=== PATIENT | female | born 1940 | race Caucasian/White ===

== ENCOUNTER → 2017-11-19 | Outpatient (CLI) | payer MEDICARE ==
[~2017-11-19] MED LIST: ALLOPURINOL 30300 M3 PO; ASPIRIN325 PO; COD LIVER OIL1 EACH PO; COZAAR 50 MG TA50 M1 PO; DESYREL50 MG PO; FELODIPINE 5 MG5 M1 PO; LUMIGAN2.5 M1 OPHTHALMIC; MULTIVITAMINS PO; NIACIN 500 MG500 M1 PO; OMEGA-31000 MG PO; PREVALITE PACKE1 PKT; SIMVASTATIN20 MG; SIMVASTATIN40 MG PO; TRAVATAN Z5 ML IO
== END ==
LOC: M.RAD 09:00
DX: Z12.31 Encounter for screening mammogram for malignant neoplasm of breast (principal)

== ENCOUNTER → 2018-11-23 | Outpatient (CLI) | payer MEDICARE | LOC: M.RAD 07:54 | DX: Z12.31 Encounter for screening mammogram for malignant neoplasm of breast (principal) ==

== ENCOUNTER 2020-04-24 11:42 | Inpatient (IN) | payer MEDICARE ==
[~2020-04-24] VITALS: Ht 160 cm; Wt 80.0 kg
--- NOTE | ~2020-04-24 | OP ---
[address] [address] OPERATIVE REPORT Name: SUKUMAR HAGAN Isabella Room: [address] IN .R.#: [id number] Admission: 04/24/20 Attend Phys: Jay Jay De León Discharge: Date of : 36 Report #: [id number] THIS REPORT FOR: cc: Trina Coe MD, Katrina MD ~ Mario Johnson DO DICTATED BY: Michael Puentes DO DATE OF SERVICE: 04/25/2020 PREOPERATIVE DIAGNOSIS: Bowel perforation. POSTOPERATIVE DIAGNOSIS: Focal perforation of the cecum. SURGEON: Mario Johnson DO CO-SURGEON: Michael Puentes, PGY5 WELDING MACHINE OPERATOR SUBMERGED ARC: Wolf Melendez DO, PGY1 and Candido Field MS3. OPERATION PERFORMED: Exploratory laparotomy with ileocecal resection and primary anastomosis and Prevena wound VAC placement. ANESTHESIA: General and preoperative erector spinae block by Anesthesia. ESTIMATED BLOOD LOSS: 50 mL. SPECIMEN: Ileocecectomy. COMPLICATIONS: None. CONDITION: Stable. DISPOSITION: PACU to floor. INDICATIONS: The patient is an 80-year-old female who presented as a transfer from the surgery center following colonoscopy. She was admitted for desaturations that she experienced throughout her colonoscopy yesterday evening, she developed some right lower quadrant pain and underwent a CT of her abdomen and pelvis today that showed pneumoperitoneum and some stranding in the right lower quadrant adjacent to the cecum. Findings were consistent with a perforation. She was informed of the risks and benefits of exploratory laparotomy with possibility of bowel resection and possibility of an ostomy. The risks and benefits were discussed with risks [facility] [address] [facility] [place] [address] OPERATIVE REPORT Name: SUKUMAR HAGAN Isabella Room: [address] IN [facility]#: [id number] Admission: 04/24/20 Attend Phys: Jay Jay De León Discharge: Date of : 36 Report #: [id number] including but not limited to bleeding, infection, anastomotic leak, need for reoperation and injury to intraabdominal contents. She understood these risks and decided to proceed with surgery. DESCRIPTION OF PROCEDURE: After informed consent was obtained, the patient was brought to the operating room and placed in supine position. SCDs were on and running. Scheduled antibiotics had been given prior to the operation. General anesthesia was administered with an ET tube. A Clemente was placed under sterile technique. The patient was prepped and draped in the usual sterile fashion. A surgical pause was held to confirm proper patient and procedure. A 10 blade was used to make a vertical midline incision centered around the umbilicus. Dissection was carried through the subcutaneous fat until the fascia was identified. Fascia was identified and elevated with 2 Kochers. Fascia was incised using cautery. The fascia was opened for the length of the incision. The peritoneum was then elevated with 2 Kellys and opened using Metzenbaum scissors. Cautery was then used to open the peritoneum in the fascia with the full length of the incision. There was some obvious fecal matter in the right lower quadrant, some soft adhesions were broken up with blunt dissection. A pool sucker was used to suck the stool in the right lower quadrant to reveal an approximately 1 cm perforation of the cecum with some surrounding bruising and hyperemia of the cecum. Because the surrounding tissue did not appear viable, decision to proceed with an ileocecectomy rather than a partial cecectomy was made. The white line of Toldt was taken down for the full length of the ascending colon. There were some thin adhesions of the appendix to the pelvis, which were taken down using cautery. The hepatic flexure was mobilized to allow for adequate length of colon for resection and anastomosis. Once this was performed, a segment of small bowel about 20 cm from the ileocecal valve was selected. A window in the mesentery was created using blunt dissection with a Jennifer. A 75 mm GRIS blue load was fired across the small bowel transection point on the ascending colon. Approximately half the length of the ascending colon was selected. Blunt dissection was similarly made to make a window in the mesentery. An additional 75 mm blue load stapler was fired across the ascending colon. The LigaSure impact device was then used to transect the mesocolon and small bowel mesentery until the specimen was completely detached, it was handed off to the back table. The mesentery and ileocolic artery were hemostatic. The ascending colon was further mobilized at the hepatic flexure and there were some fatty adhesions between the ascending colon and the transverse colon. These were taken down using the LigaSure impact device. Once adequate length on the colon was mobilized to allow for a [id number]-jn-lqwv anastomosis, the small bowel and colon were placed adjacent to one another. Corners of both staple lines were excised using heavy curved Mayos. A 75 mm GRIS was then advanced into both limbs, the small bowel and the ascending colon. The staplers were united and fired. The antimesenteric aspect of the small bowel was adjacent to the taenia of the ascending colon. The common channel looked good in appearance. There was no bleeding from the anastomosis. On the mucosa side, [place] [address] OPERATIVE REPORT Name: SUKUMAR HAGAN Room: [address]#: [id number] Admission: 04/24/20 Attend Phys: Jay Jay De León Discharge: Date of : 38 Report #: [id number] was hemostatic as well. The stapler was removed. The edges of the staple line were grasped with four Allises and elevated. A TA 60 was fired across to close the common channel. Once this was performed, the staple line was inspected. A small amount of stool leak through the staple line, so the previous staple line was elevated and an additional load with the TA 60 was fired across. Beneath this, the staple line was inspected and had a much superior seal. There was no stool leaking from the staple line. Staple line appeared healthy and well perfused. There was a small amount of bleeding at the staple line that was controlled with very minimal point cautery. This was hemostatic. A 3-0 [address] was used to place a crotch stitch at the crotch of the anastomosis staple line. This appeared to be a very natural and tension-free anastomosis that lied very easily in the right lower quadrant. It was returned to its normal anatomical position. The abdomen was thoroughly irrigated with 2 liters of warm saline. A 19-Chadian TRAVIS drain was placed in the right lower quadrant. The NG tube was placed by Anesthesia and palpated in adequate position in the stomach. The abdomen was dry. There was no bleeding. A 2-0 PDS was used to close the abdominal fascia in a running small bites fashion from the top and an additional 2-0 PDS from the bottom. The suture line was oversewed by 2 cm and tied. The skin was then closed after irrigating the incision once more. Skin was closed with benito and a 13 cm Prevena was placed with some Mastisol to the incision. A drain sponge was placed around the TRAVIS drain site that was secured with 3-0 nylon. All counts were correct. The patient tolerated the procedure well. She was extubated and transferred to the PACU in stable condition. By: 1820 1917Alouis Johnson DO /surya
[~2020-04-24 11:42] MED LIST changes: -ALLOPURINOL 30300 M3 PO; +DESYREL150 MG PO; -DESYREL50 MG PO; -PREVALITE PACKE1 PKT; +PREVALITE PACKET4 GM PO; -SIMVASTATIN20 MG; +ZOCOR 20 MG TAB20 M1 PO; +ZYLOPRIM300 MG PO
[2020-04-24 11:51] VITALS: BP 145/62
[2020-04-24] MEDS ORDERED: PROAIR HFA8.5 GM INH (11:56)
[2020-04-24 12:23] LABS: ABSOLUTE LYMPHOCYTES 0.7 thou/uL (0.8-5.3); ABSOLUTE MONOCYTES 0.5 thou/uL (0.0-1.2); BASOPHILS 0.4 %; EOSINOPHILS 0.3 %; HEMATOCRIT 45.3 % (37.0-47.0); HEMOGLOBIN 15.3 gm/dL (12.0-15.0); LYMPHOCYTES 9.1 %; MCH 34.2 pg (26.0-34.0); MCHC 33.8 g/dL (28.0-37.0); MCV 101.3 fL (80.0-100.0); MONOCYTES 7.6 %; MPV 9.4 fl. (7.2-11.1); NUCLEATED RBCS 0 /100WBC; PLATELET COUNT* 203 thou/uL (150-400); POLYS 82.6 %; RBC 4.47 mil/uL (4.20-5.00); RDW-CV 15.1 % (10.5-14.5); WBC 7.2 thou/uL (4.0-11.0)
[2020-04-24 12:29] LABS: CREATININE 0.8 mg/dL (0.6-1.3); POTASSIUM 4.2 mmol/L (3.5-5.1)
[2020-04-24 12:33] LABS: APTT 27.9 Seconds (25.0-31.3); INR 1.1; PROTIME 11.6 Seconds (9.20-11.50)
[2020-04-24 12:34] LABS: ALBUMIN 3.2 g/dL (3.4-5.0); TOTAL BILIRUBIN 0.6 mg/dL (<0.1-1.0); TOTAL PROTEIN 7.9 g/dL (6.4-8.2)
--- NOTE | 2020-04-24 14:04 | EKG ---
[place] [address] ELECTROCARDIOGRAM REPORT Name: SUKUMAR HAGAN Room: [facility]#: [id number] Admission: 04/24/20 Attend Phys: Discharge: Date of : 36 Date of Service: 04/24/20 1208 Report #: [id number] THIS REPORT FOR: //name// [facility] ED Test Date: 2020-04-24 Test Time: 12:08:55 Pat Name: SUKUMAR HAGAN Department: Room: Gender: Combination Operator: [facility] : 1940 Requested By: Ismael Espinoza Order Number: [id number] MD: Andi Duarte Measurements Intervals [place] Rate: 97 P: 5 IA: 160 QRS: 89 QRSD: 136 T: -16 QT: 417 QTc: 530 Interpretive Statements Sinus rhythm Right bundle branch block No previous ECG available for comparison Electronically Signed On 04-24-2020 14:03:57 [employer] by Andi Duarte [email or web address] <ELECTRONICALLY SIGNED> By: Andi Duarte MD, [facility] 04/24/20 1403 1208 07 Andi Duarte MD, FACC /EPI
--- NOTE | 2020-04-24 15:00 | NUR ---
PT'S DAUGHTER IN LAW,ACE WOULD LIKE TO BE NOTIFIED WITH ANY UPDATES AT [phone]
[2020-04-24 16:53] VITALS: BP 148/98
[2020-04-24 17:14] VITALS: BP 179/74
--- NOTE | 2020-04-24 18:55 | NUR ---
RECIEVED REPORT FOR ED. PT ARRIVED TO TELE FLOOR AROUND 1700. ADMISSION ASSESSMENT, VITALS, HISTORY AND EDUCATION COMPLETED CHARTED. MEDS PER EMAR. PT ORIENTED TO ROOM BED AND CALL LIGHT. UP IN BEDSIDE CHAIR PRESENTLY. DENIES PAIN. FAMILY AT BEDSIDE UPON ADMIT. CALL LIGHT IS WITHIN REACH. HOURLY ROUNDING PERFORMED. FALL PRECAUTIONS IN PLACE.
[2020-04-24 20:00] VITALS: BP 144/66
[2020-04-24 23:45] VITALS: BP 134/70
[2020-04-25 04:55] LABS: HEMATOCRIT 41.6 % (37.0-47.0); HEMOGLOBIN 13.7 gm/dL (12.0-15.0); MCH 33.2 pg (26.0-34.0); MCHC 32.9 g/dL (28.0-37.0); MCV 100.9 fL (80.0-100.0); MPV 9.4 fl. (7.2-11.1); NUCLEATED RBCS 0 /100WBC; PLATELET COUNT* 200 thou/uL (150-400); RBC 4.12 mil/uL (4.20-5.00); RDW-CV 14.6 % (10.5-14.5)
[2020-04-25 05:14] LABS: ALBUMIN 2.6 g/dL (3.4-5.0); CALCIUM 8.8 mg/dL (8.5-10.1); CREATININE 0.7 mg/dL (0.6-1.3); POTASSIUM 3.7 mmol/L (3.5-5.1); TOTAL BILIRUBIN 0.4 mg/dL (<0.1-1.0)
--- NOTE | 2020-04-25 05:15 | NUR ---
ASSUMED CARE OF PT AFTER REPORT AT 1930. PT A&OX4. VSS. PHYSICAL ASSESSMENT COMPLETED AND CHARTED. PT ON HFNC 5L. PT ON MEDSURG STATUS. PT UPADLIB TO BSC. PT DENIES ANY PAIN. PT ABLE TO SLEEP WELL ON BED. CALL LIGHT WITHIN REACH.
[2020-04-25 05:48] LABS: ABSOLUTE LYMPHOCYTES 0.6 thou/uL (0.8-5.3); ABSOLUTE NEUTROPHILS 11.4 thou/uL (1.6-8.1); PLATELET ESTIMATE ADEQUATE
[2020-04-25 05:49] LABS: ANISOCYTOSIS 1+; POIKILOCYTOSIS 1+
[2020-04-25 08:20] VITALS: BP 133/61
[2020-04-25 12:00] VITALS: BP 118/67
--- NOTE | 2020-04-25 13:47 | 2DMMODE ---
[place] [address] 2 D/M-MODE ECHOCARDIOGRAM Name: SUKUMAR HAGAN Room: [address] IN [facility]#: [id number] Admission: 04/24/20 Attend Phys: Juaquin Cooper Discharge: Date of : 36 Date of Service: 04/25/20 1347 Report #: [id number] THIS REPORT FOR: cc: Trina Coe MD, Katrina MD Liston, Michael J. MD [facility] ~ APPROVED REPORT Study performed: 04/25/2020 10:50:40 EXAM: Comprehensive 2D, Doppler, and color-flow Echocardiogram Patient Location: In-Patient Room #: [facility] Status: routine BSA: 1.67 HR: 96 bpm BP: 133/61 mmHg Rhythm: Atrial Fibrillation Other Information Study Quality: Good Indications Pleural Effusion 2D Dimensions IVSd: 8.71 (7-11mm) LVOT Diam: 20.60 (18-24mm) LVDd: 50.63 mm PWd: 8.71 (7-11mm) Ascending Ao: 24.59 (22-36mm) LVDs: 39.22 (25-40mm) Aortic Root: 25.29 mm Volumes Left Atrial Volume (Systole) LA ESV Index: 31.40 mL/m2 Aortic Valve AoV Peak Mich.: 2.00 m/s AO Peak Gr.: 16.04 mmHg LVOT Max P.37 mmHg AO Mean Gr.: 9.72 mmHg LVOT Mean P.74 mmHg LVOT Max V: 0.59 m/s AO V2 VTI: 36.66 cm LVOT Mean V: 0.40 m/s ROSIE (VTI): 1.02 cm2 LVOT V1 VTI: 11.23 [place] [address] 2 D/M-MODE ECHOCARDIOGRAM Name: SUKUMAR HAGAN Room: [address] IN [facility]#: [id number] Admission: 04/24/20 Attend Phys: Juaquin Cooper Discharge: Date of : 36 Date of Service: 04/25/20 1347 Report #: [id number] TDI Medial E' Mich.: 0.09 m/s Lateral E' Mich.: 0.10 m/s Pulmonary Valve PV Peak Mich.: 0.92 m/s PV Peak Gr.: 3.36 mmHg Tricuspid Valve RAP Estimate: 5.00 mmHg TR Peak Gr.: 31.79 mmHg RVSP: 36.00 mmHg PA Pressure: 36.00 mmHg Left Ventricle The left ventricle is normal size. There is mild global hypokinesis. Additionally there is mild left ventricular systolic dyssynergy consistent with underlying bundle branch block. There is normal left ventricular wall thickness. Left ventricular systolic function is mildly decreased. LVEF is 45-50%. Transmitral Doppler flow pattern suggests restrictive physiology. Right Ventricle Right ventricle is mildly dilated. The right ventricular systolic function is normal. Atria The left atrium size is normal. Right atrium is mildly dilated. Aortic Valve Moderate aortic valve sclerosis. No aortic regurgitation is present. Severe aortic stenosis. Mitral Valve The mitral valve is normal in structure. Mild mitral regurgitation. No evidence of mitral valve stenosis. Tricuspid Valve The tricuspid valve is normal in structure. Mild tricuspid regurgitation. The RVSP is 45-50 mmHg. Pulmonic Valve The pulmonary valve is normal in structure. There is no pulmonic valvular regurgitation. Great Vessels The aortic root is normal in size. IVC is dilated [place] [address] 2 D/M-MODE ECHOCARDIOGRAM Name: SUKUMAR HAGAN Room: [address] IN [facility]#: [id number] Admission: 04/24/20 Attend Phys: Juaquin Cooper Discharge: Date of : 36 Date of Service: 04/25/20 1347 Report #: [id number] <50% with inspiration. Pericardium There is no pericardial effusion. <Conclusion> The left ventricle is normal size. There is normal left ventricular wall thickness. Left ventricular systolic function is mildly decreased. LVEF is 45-50%. Transmitral Doppler flow pattern suggests restrictive physiology. There is mild global hypokinesis. Additionally there is mild left ventricular systolic dyssynergy consistent with underlying bundle branch block. Right ventricle is mildly dilated. Right atrium is mildly dilated. Moderate aortic valve sclerosis. Severe aortic stenosis. Mild mitral regurgitation. Mild tricuspid regurgitation. The RVSP is 45-50 mmHg. IVC is dilated and collapses <50% with inspiration. <ELECTRONICALLY SIGNED> By: Mauricio Rushing MD, [facility] 04/25/20 1347 46 46 Mauricio Rushing MD, FACC /INF
--- NOTE | 2020-04-25 14:20 | NUR ---
CM COMPLETED INITIAL ASSESSMENT. PT LVIES HOME ALONE. PT IS [place]. PT ACE OMER AT BEDSIDE. PT HAD 5L OF O2 APPLIED; HOWEVER, PT DOES NOT USE HOME O2. PT HAS 0 DMES. PT DENIES HX WITH HH OR SNF. PT BELEIVES SHE DID REHAB W/ARU. PT IS ACTIVE, DRIVE AND INDEPENDENT W/ADLS. CM TO CONT TO FOLLOW.
--- NOTE | 2020-04-25 17:48 | NUR ---
Pt c/o pain to RLQ this am, rated 5/10. S/P colonoscopy 04/[address] polyp removal. Paged Dr. Hatfield, who ordered CT abd; which showed probable bowel perf. GI and Surgery consults ordered; pt to OR at 1350 for exp. laparotomy. Pt still off unit. Updated Leticia (dtr). Pt's VSS, was on 5L O2 per [facility] upon departure to OR.
[2020-04-25 20:00] VITALS: BP 130/68
[2020-04-25 23:42] VITALS: BP 161/72
--- NOTE | 2020-04-26 03:34 | NUR ---
ASSUMED CARE OFPT AFTER REPORT AT 1930. PT A&OX4. VSS. PHYSICAL ASSESSENT COMPLETED AND CHARTED. PT ON O2 HFNC 8L. PT TRACING SR/1ST DEG/BBB/PAC/PVC ON TELE. PT COMPLAINED OF ABDOMINAL PAIN-MED GIVEN PER MAY. MAINTAINED NGT TO LIS. MAINTAINED TRAVIS DRAIN IN NEGATIVE PRESSURE. PT WITH PARHAM TO DEPENDENT DRAIN. PT ABLE TO SLEEP WELL ON BED. CALL LIGHT WITHI REACH.
[2020-04-26 04:00] VITALS: BP 119/52
[2020-04-26 04:55] LABS: ABSOLUTE LYMPHOCYTES 0.3 thou/uL (0.8-5.3); ABSOLUTE MONOCYTES 0.4 thou/uL (0.0-1.2); ABSOLUTE NEUTROPHILS 13.1 thou/uL (1.6-8.1); BASOPHILS 0.1 %; HEMATOCRIT 35.9 % (37.0-47.0); HEMOGLOBIN 11.8 gm/dL (12.0-15.0); LYMPHOCYTES 2.3 %; MCH 33.8 pg (26.0-34.0); MCHC 32.9 g/dL (28.0-37.0); MCV 102.6 fL (80.0-100.0); MONOCYTES 3.1 %; MPV 9.2 fl. (7.2-11.1); NUCLEATED RBCS 0 /100WBC; PLATELET COUNT* 154 thou/uL (150-400); POLYS 94.5 %; WBC 13.9 thou/uL (4.0-11.0)
[2020-04-26 05:18] LABS: CREATININE 0.8 mg/dL (0.6-1.3); MAGNESIUM 1.7 mg/dL (1.8-2.4); POTASSIUM 3.7 mmol/L (3.5-5.1); TOTAL BILIRUBIN 0.4 mg/dL (<0.1-1.0); TOTAL PROTEIN 5.5 g/dL (6.4-8.2)
[2020-04-26 08:40] VITALS: BP 117/65
[2020-04-26 11:19] VITALS: BP 110/59
--- NOTE | 2020-04-26 11:26 | CON ---
[address] [address] CONSULTATION Name: SUKUMAR HAGAN Room: [address] IN M.R.#: [id number] Admission: 04/24/20 Attend Phys: Jay Jay De León Discharge: Date of : 38 Report #: [id number] THIS REPORT FOR: cc: Trina Coe MD, Katrina MD ~ Ronny Back MD DATE OF SERVICE: 04/25/2020 HISTORY OF PRESENT ILLNESS: This is an 80-year-old female with history of hypertension, diabetes, hyperlipidemia, COPD and a 09-gkfn-gfdo history of smoking, who was brought in to [facility] ER after an elective colonoscopy yesterday. During the colonoscopy, the patient had a large polyp in the cecum that was resected. The reason for inpatient admission was hypoxia. The patient complained of vague abdominal pain yesterday evening and a CT scan was performed and this showed the presence of free air. The patient currently denies any abdominal pain, nausea, vomiting, fevers or chills. She has been able to tolerate a diet till now. PAST MEDICAL HISTORY: Hypertension, COPD, hyperlipidemia. PAST SURGICAL HISTORY: Cholecystectomy, right hip replacement, peripheral vascular stents, bilateral cataracts. SOCIAL HISTORY: The patient smokes 1 pack per day, has a 56-reds-wrte history of smoking. FAMILY HISTORY: Relevant for coronary artery disease in son. REVIEW OF SYSTEMS: Comprehensive 10-point review of systems is negative except for what is mentioned in the HPI. PHYSICAL EXAMINATION: VITAL SIGNS: Temperature 36.9, pulse rate 98, respirations 18, blood pressure 133/61, pulse ox 90% on 4 liters. GENERAL: The patient is alert, awake, oriented x 3. HEENT: Pupils are equal, round and reactive. Mucous membranes are moist; there is no congestion. LUNGS: Clear to auscultation bilaterally. CARDIOVASCULAR: Rate and rhythm regular. S1, S2 present. ABDOMEN: Soft. There is no guarding or rigidity. Bowel sounds are present and normal. LABORATORY DATA: Hemoglobin 13.7, hematocrit 41.6, platelet count 200, WBC count 12. INR 1.1. Sodium 142, potassium 3.7, chloride 105, bicarbonate 25, [place] [address] CONSULTATION Name: HAGANSUKUMAR BOOTH Isabella Room: [address]#: [id number] Admission: 04/24/20 Attend Phys: Jay Jay De León Discharge: Date of : 38 Report #: [id number] BUN 11, creatinine 0.7, total bilirubin 0.4, AST 18, ALT 22, alkaline phosphatase 70. IMAGING STUDIES: CT abdomen and pelvis: This demonstrates pneumoperitoneum concerning for colonic or gastric perforation. ASSESSMENT AND PLAN: A pleasant 80-year-old female presenting for hypoxia post colonoscopy, noted to have pneumoperitoneum suggestive of colonic perforation. Surprisingly, the patient does not have any symptoms of perforation such as abdominal pain, fevers or guarding. However, due to her advanced age and comorbidities, I suspect exploring her abdomen to look for perforation would be better than waiting for her to develop any complications related to the perforation. I have spoken regarding her with Dr. Johnson. The GI service will continue to follow along. <ELECTRONICALLY SIGNED> By: Ronny Back MD 04/26/20 1126 1829 [id number] Back MD /nt
--- NOTE | 2020-04-26 16:07 | NUR ---
CM INFORMED DURING PRIME ROUNDING OF THE PLAN OF CARE FOR THE PT. PT/OT EVAL PENDING. PT CURRENTLY ON 8L O2, AND DID NOT HAVE HOME 02 PRIOR TO ADMIT. PT MAY NEED HH AT D/C PENDING MOBILITY. CM WILL REMAIN AVAILABLE TO ASSIST AND FOLLOW NEEDED.
--- NOTE | 2020-04-26 16:07 | CON ---
[address] [address] CONSULTATION Name: HAGANSUKUMAR Isabella Room: [address] IN .R.#: [id number] Admission: 04/24/20 Attend Phys: Jay Jay De León Discharge: Date of : 38 Report #: [id number] THIS REPORT FOR: cc: Trina Coe MD, Katrina MD ~ Galen Kinney MD DATE OF SERVICE: 04/25/2020 REQUESTING PHYSICIAN: Consult has been requested by Dr. Hatfield and Dr. Cooper. INDICATION FOR CONSULTATION: Hypoxia. HISTORY OF PRESENT ILLNESS: This is an 80-year-old female with past medical history as mentioned below. This does include a history of COPD. The patient, however, is not known to be on supplemental oxygen, previously, the patient came yesterday for a colonoscopy, is reported to have been hypoxemic prior to the procedure and has remained hypoxemic after as well and this is the reason that she in fact was admitted. The patient is reported to have at one point had an O2 saturation of 76% on room air, currently, the patient is requiring 4-5 liters of oxygen to maintain O2 saturation in the low 90s. She as noted above is not on supplemental oxygen before. The patient does complain of shortness of breath, but she says that she is always short of breath. She does not report any increase in shortness of breath. She does have a cough with small amounts of yellow sputum. She does not have chest pain. Does not have upper respiratory complaints. Does not have swelling of lower extremities or calf pain. The patient has had some right-sided abdominal pain and as discussed below, she does have pneumoperitoneum on her CT of the abdomen and pelvis. REVIEW OF SYSTEMS: The patient answered to the negative for 12 questions for review of systems except as mentioned above. 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 SOCIAL HISTORY: The patient is an active smoker and has been smoking for several decades half to 1 pack a day, only occasional alcohol use. No known history of illegal drug use. CURRENT MEDICATIONS: List in [employer] [place] [address] CONSULTATION Name: HAGANSUKUMAR Room: [address]#: [id number] Admission: 04/24/20 Attend Phys: Jay Jay De León Discharge: Date of : 38 Report #: [id number] HOME MEDICATIONS: List in [employer] reviewed. FAMILY HISTORY: There is a history of heart disease in the family. ALLERGIES: SHE IS REPORTED TO HAVE HAD AN ALLERGY OR ADVERSE REACTION TO CAPTOPRIL, HYDROCODONE, AND PLAVIX. PHYSICAL EXAMINATION: GENERAL: She was alert, awake and oriented, did not appear to be in any distress at this time. VITAL SIGNS: Had a pulse of 100 and blood pressure of 118/67. She, however, was saturating only 91-92% on 5 liters nasal cannula, respiratory rate is 18-19. She is afebrile with a temperature of 36.9. Body mass index is 25. HEENT: Head is normocephalic and atraumatic. Pupils are equal and reactive. There is no throat erythema. She does appear to have a narrow airway. NECK: Does not show raised JVP, asymmetry, mass or lymph nodes. CHEST: Symmetrical expansion on inspection and palpation. On auscultation, breath sounds are bilaterally equal, but decreased. I do not hear any added sounds. HEART: Regular. There is no murmur. ABDOMEN: Soft. There is tenderness at the right side of the abdomen, particularly in the right lower quadrant. EXTREMITIES: Lower extremities show no edema, no calf tenderness. SKIN: Dry and intact. NEUROLOGICAL: She did move all extremities bilaterally equally and spontaneously with no focal deficit identified. LABORATORY DATA: The patient's chest x-ray from yesterday is reviewed and compared with a chest x-ray done today. There is a developing opacity in the right middle/lower lobe, which could indicate a small infiltrate. The patient's CT of the abdomen and pelvis shows mild atelectasis at bilateral lung bases. The patient's lab work in [facility] is reviewed. CT of the abdomen and pelvis report, which does show pneumoperitoneum in [facility] reviewed. ASSESSMENT AND PLAN: 1. Wctam-tc-trhktuz hypoxemic respiratory failure. She does appear to have chronic obstructive pulmonary disease. It appears likely to me that she has chronic hypoxemic respiratory failure, which has not previously been identified and this may be the acute recognition of a chronic issue, some worsening may have occurred as a result of the colonoscopy prep as well as the procedure. At first glance from thromboembolism appears to be unlikely; however, cannot be completely ruled out. 2. Chronic obstructive pulmonary disease. We will continue with Bart; [address] [address] CONSULTATION Name: SUKUMAR HAGAN Room: [address] IN [facility]#: [id number] Admission: 04/24/20 Attend Phys: Jay Jay De León Discharge: Date of : 36 Report #: [id number] however, I cut back the dose further. We will continue with DuoNeb. 3. Pulmonary infiltrate. There is a developing opacity in the right mid zone. She already is on broad-spectrum antibiotics. We will follow. 4. Pneumoperitoneum/recent colonoscopy. Defer followup to GI and Surgery Services. I ordered n.p.o. pending their evaluation. 5. Evaluation for thromboembolic phenomenon/past medical history of deep vein thrombosis, she is status post inferior vena cava filter. We will go ahead and repeat venous Dopplers. We will go ahead and obtain a D-dimer as well. In case, the D-dimer is elevated and then I may consider a CTA chest. An echocardiogram was also ordered and pending at this time. Thanks for this consultation. <ELECTRONICALLY SIGNED> By: Galen Kinney MD 04/26/20 1607 1300 1928Aroslyn Kinney MD /nt
[2020-04-26 16:30] VITALS: BP 129/66
--- NOTE | 2020-04-26 18:50 | NUR ---
RECEIVED REPORT. ASSUMED CARE OF PT AROUND 0730. AM ASSESSMENT AND VITALS COMPLETED CHATED. MEDS PER EMAR. WOUND VAC IN PLACE AND WORKING. TRAVIS DRAIN IN PLACE, OUTPUT CHARTED. NG TUBE IN PLACE TO LIS. PT TOLERATED PO MEDS WITH SIP OF WATER. D.I.L. IN TO VISIT THIS AM, RECEIVED UPDATE. PARHAM IN PLACE TO DD, OUTPUT POOR - DR GREENFIELD NOTIFIED AND ORDER RECEIVED FOR FLUID BOLUS. PT CURENTLY RESTING IN BED. CALL LIGHT WITIN REACH. HOURLY ROUNDING PERFORMED. FALL PRECAUTIONS IN PLACE.
[2020-04-26 20:00] VITALS: BP 133/67
[2020-04-27 00:46] VITALS: BP 138/77
[2020-04-27 04:00] VITALS: BP 138/70
[2020-04-27 04:30] LABS: ABSOLUTE LYMPHOCYTES 0.7 thou/uL (0.8-5.3); ABSOLUTE MONOCYTES 0.6 thou/uL (0.0-1.2); ABSOLUTE NEUTROPHILS 9.7 thou/uL (1.6-8.1); BASOPHILS 0.1 %; HEMATOCRIT 39.5 % (37.0-47.0); HEMOGLOBIN 12.7 gm/dL (12.0-15.0); LYMPHOCYTES 6.5 %; MCH 33.3 pg (26.0-34.0); MCHC 32.1 g/dL (28.0-37.0); MCV 103.8 fL (80.0-100.0); MONOCYTES 5.4 %; MPV 9.6 fl. (7.2-11.1); NUCLEATED RBCS 0 /100WBC; PLATELET COUNT* 164 thou/uL (150-400); RBC 3.81 mil/uL (4.20-5.00); RDW-CV 14.9 % (10.5-14.5); WBC 11.1 thou/uL (4.0-11.0)
[2020-04-27 05:12] LABS: CALCIUM 8.1 mg/dL (8.5-10.1); CREATININE 0.7 mg/dL (0.6-1.3); MAGNESIUM 2.1 mg/dL (1.8-2.4); POTASSIUM 3.8 mmol/L (3.5-5.1)
--- NOTE | 2020-04-27 06:30 | NUR ---
Alert and oriented x 4. Vital signs are stable, O2 sat 95% on high flow 8L n/c. Heart rate is regular and SR,BBB,PVC's on monitor. Midline abdominal incision is approximated with Prevena woundvac and it is working well. She has had 450 mls output per epperson cath. TRAVIS is in RLQ and has serosang drainage. She denies need for pain or nausea meds. She has slept well.
[2020-04-27 07:48] VITALS: BP 131/70
[2020-04-27 11:26] VITALS: BP 127/62
--- NOTE | 2020-04-27 12:58 | NUR ---
CM INFORMED DURING PRIME ROUNDING OF THE PLAN OF CARE FOR THE PT. PHYSICIAN INFORMS OF PLAN FOR THE PT TO POSSIBLY BE HERE THRUGH THE WEEKEND. PT IS POD#2. PT/OT CONTINUES TO FOLLOW PT. PT CURRENTLY ON 8L O2. PT MAY NEED HH AND HOME O2 AT D/C. CM WILL REMAIN AVAILABLE TO ASSIST AND FOLLOW NEEDED.
[2020-04-27 13:15] LABS: CALCIUM 8.7 mg/dL (8.5-10.1); CREATININE 0.7 mg/dL (0.6-1.3); POTASSIUM 3.9 mmol/L (3.5-5.1)
[2020-04-27 16:07] VITALS: BP 156/77
[2020-04-27 20:00] VITALS: BP 153/64
[2020-04-28] VITALS (7 sets, daily range): BP systolic 128–143; BP diastolic 65–79
[2020-04-28 04:31] LABS: ABSOLUTE LYMPHOCYTES 0.6 thou/uL (0.8-5.3); ABSOLUTE MONOCYTES 0.5 thou/uL (0.0-1.2); ABSOLUTE NEUTROPHILS 7.7 thou/uL (1.6-8.1); BASOPHILS 0.1 %; HEMATOCRIT 37.1 % (37.0-47.0); HEMOGLOBIN 12.3 gm/dL (12.0-15.0); LYMPHOCYTES 6.4 %; MCH 34.1 pg (26.0-34.0); MCHC 33.3 g/dL (28.0-37.0); MCV 102.5 fL (80.0-100.0); MONOCYTES 5.8 %; MPV 9.9 fl. (7.2-11.1); NUCLEATED RBCS 0 /100WBC; PLATELET COUNT* 155 thou/uL (150-400); POLYS 87.7 %; RBC 3.62 mil/uL (4.20-5.00); RDW-CV 14.5 % (10.5-14.5); WBC 8.8 thou/uL (4.0-11.0)
[2020-04-28 04:59] LABS: CALCIUM 7.8 mg/dL (8.5-10.1); CREATININE 0.6 mg/dL (0.6-1.3); POTASSIUM 3.9 mmol/L (3.5-5.1); TOTAL BILIRUBIN 0.4 mg/dL (<0.1-1.0); TOTAL PROTEIN 5.9 g/dL (6.4-8.2)
--- NOTE | 2020-04-28 05:40 | NUR ---
NURSING ASSESSMENT COMPLETED AT START OF SHIFT. PT AAOX4 BUT EXHIBITS POOR MEMEORY. HOURLY ROUNDING COMPLETED. FORK TRUCK DRIVER IN PLACE. PT COMPLAINED OF EPISODES OF DIARRHEA AFTER DINNER, DR. RODRIGUEZ NOTIFIED AND NEW ODER RECEIVED. PT AMBULATED HALLWAY THROUGHOUT THE NIGHT, VOICED NO CONCERNS. CALL LIGHT WITHIN REACH.
--- NOTE | 2020-04-28 05:54 | NUR ---
ASSUMED PT CARE AT 1915. NURSING ASSESSMENT COMPLETED AT START OF SHIFT. PT HAS NG HOOKED UP TO LIS. EXCHANGE ENGINEER IN PLACE. SEROSANGUENIOUS DRAINAGE FROM TRAVIS DRAIN. PREVENA IN PLACE TO SURGICAL INCISION IN ABDOMEN. HOURLY ROUNDING COMPLETED. PT STILL NOT PASSING FLATUS/NO BM THIS SHIFT. PT ENCOURAGED TO MOVE AROUND AND USE IS. Q2H REPOSITIONING COMPLETED. PARHAM CATHETER REMOVED THIS SHIFT. FALL PRECAUTIONS IN PLACE, CALL LIGHT WITHIN REACH.
--- NOTE | 2020-04-28 11:50 | NUR ---
CM INFORMED DURING PRIME ROUNDING OF THE PLAN OF CARE FOR THE PT. PT REMAINS ON IV ABT'S. WOUND VAC IN PLACE. PT CURRENTLY ON 6L O2. PLAN FOR PT TO REMAIN INPT THROUGH THE WEEKEND. POSSIBLE NEED AT D/C INCLUDE HH AND HOME O2. PT EVALUATED BY P.T. AND ONLY ABLE TO AMBULATE '3 SIDE STEPS'. CM INFORMED P.T. OF THE NEED TO F/U WITH PT TO ASSIST IN DETERMINING MOBILITY AND D/C NEEDS. CM WILL REMAIN AVAILABLE TO ASSIST AND FOLLOW NEEDED.
[2020-04-28 15:43] LABS: CALCIUM 8.6 mg/dL (8.5-10.1); CREATININE 0.9 mg/dL (0.6-1.3); MAGNESIUM 2.2 mg/dL (1.8-2.4); POTASSIUM 3.9 mmol/L (3.5-5.1)
--- NOTE | 2020-04-28 19:25 | NUR ---
ASSUMED PT CARE AT 0730, PT AOX4, NO C/O PAIN OR SHORTNESS OF BREATH. PT WORKED W/ SURGERY TODAY AND NG TUBE SWITCHED FROM INT SUCTION TO CLAMPED AND PT'S DIET ADVANCED TO CLEAR LIQUIDS, TOLERATING WELL. PT WORKED W/ WOUND CARE TODAY FOR WOUND VAC. TRAVIS DRAIN DRAINING SEROSANGUINOUS FLUID. PT BEING TURNED Q2H WHEN IN BED AND GETS UP W/ 1 TO BEDSIDE COMMODE. PT GOAL IS TO CONTINUE TO TOLERATE DIET. MEDS PER MAY, HOURLY ROUNDING OBSERVED, FALL PRECAUTIONS IN PLACE, CALL LIGHT W/IN REACH.
[2020-04-29 04:00] VITALS: BP 138/72
--- NOTE | 2020-04-29 05:01 | NUR ---
PT HAS SLEPT WELL OVERNIGHT. UP WITH ASSIST TO BSC TO VOID, NO BM OR FLATUS. AOX4, ABLE TO USE CALL LITE AND MAKE NEEDS KNONW. ABD WOUND VAC ON AND OPERATING. RLQ ABD TRAVIS DRAIN WITH SEROSANG FLUID DRNG, CLOT PRESENT IN BULB FROM START OF SHIFT. NGT REMAINS CLAMPED, PT DENIES PAIN OR N/V. HS ACCUCHECK 154, NO MED ORDERS. O2 6L HIFLO NC SAT MID 90'S. CONGESTED COUGH, LUNGS COARSE. RT TX. AM LABS. PT TURNED AND REPOSITIONED Q2 HOURS AND PRN FOR SKIN CARE AND COMFORT SHE WOULD ALLOW, EDUCATION GIVEN WITH REFUSAL OF SOME TURNS. LFA AND RAC SL IV. TELE SR BBB, VSS.
[2020-04-29 06:32] LABS: HEMATOCRIT 38.2 % (37.0-47.0); HEMOGLOBIN 12.6 gm/dL (12.0-15.0); MCH 33.7 pg (26.0-34.0); MCV 101.9 fL (80.0-100.0); MPV 9.8 fl. (7.2-11.1); RBC 3.75 mil/uL (4.20-5.00); RDW-CV 14.4 % (10.5-14.5); WBC 6.9 thou/uL (4.0-11.0)
[2020-04-29 06:45] LABS: ALBUMIN 2.2 g/dL (3.4-5.0); CALCIUM 8.4 mg/dL (8.5-10.1); CREATININE 0.7 mg/dL (0.6-1.3); MAGNESIUM 1.9 mg/dL (1.8-2.4); POTASSIUM 3.8 mmol/L (3.5-5.1); TOTAL BILIRUBIN 0.4 mg/dL (<0.1-1.0); TOTAL PROTEIN 6.1 g/dL (6.4-8.2)
[2020-04-29 08:00] VITALS: BP 134/65
[2020-04-29 12:17] VITALS: BP 126/67
[2020-04-29 15:51] VITALS: BP 135/63
--- NOTE | 2020-04-29 20:19 | NUR ---
RECEIVED REPORT. ASSUMED CARE OF PT AROUND 0730. AM ASSESSMENT AND VITALS COMPLETED CHARTED. MEDS PER EMAR. NG TUBE REMOVED. MIDLINE INCISION WITH WOUND VAC IN PLACE. TRAVIS DRAIN IN PLACE. PT UP WITH SBA MULTIPLE TIMES TO COMMODE AND BESIDE CHAIR. PT HAD 3 LIQUID BMS THIS SHIFT. SON VIISTED. FALL PRECAUTIONS IN PLACE. CALL LIGHT WITHIN REACH
[2020-04-29 21:00] VITALS: BP 136/51
[2020-04-29 23:28] VITALS: BP 115/59
[2020-04-30] VITALS (7 sets, daily range): BP systolic 102–146; BP diastolic 50–76
[2020-04-30 05:08] LABS: MCH 33.4 pg (26.0-34.0); MCHC 33.2 g/dL (28.0-37.0); MCV 100.5 fL (80.0-100.0); MPV 9.7 fl. (7.2-11.1); RBC 3.58 mil/uL (4.20-5.00); RDW-CV 14.3 % (10.5-14.5); WBC 7.4 thou/uL (4.0-11.0)
[2020-04-30 05:14] LABS: ALBUMIN 2.1 g/dL (3.4-5.0); CALCIUM 8.1 mg/dL (8.5-10.1); CREATININE 0.7 mg/dL (0.6-1.3); MAGNESIUM 2.2 mg/dL (1.8-2.4); POTASSIUM 3.4 mmol/L (3.5-5.1); TOTAL BILIRUBIN 0.3 mg/dL (<0.1-1.0); TOTAL PROTEIN 5.7 g/dL (6.4-8.2)
--- NOTE | 2020-04-30 05:59 | NUR ---
PT AO X4 LYING IN BED ATT TIME OF ASSESSMENT. SHE IS STANDING AND PIVOTING TO BSC WITH STANDBY ASSIST. WOUND VAC IN PLACE AND TRAVIS WITH SEROUS DRAINAGE. PT DENIES PAIN AT THIS TIME. VSS PT ON 4L NC. LUNGS DIMINISHED THROUGHOUT. PT NSR ON SUPERVISOR CHEMICAL.
--- NOTE | 2020-04-30 17:52 | NUR ---
RECEIVED REPORT. ASSUMED CARE OF PT AROUND 0730. AM ASSESSMENT AND VITALS COMPLETED CHARTED. MEDS PER EMAR. PT HAS DENIED PAIN ALL DAY. TOLERATING FULL LIQUIDS. UP TO BSC MULTIPLE TIMES - 2 LIQUID BMS NOTED. TRAVIS DRAIN INTACT, SERO-SANGUINOUS DRAINAGE NOTED. MIDLINE INCISION WITH WOUND VAC IN PLACE. PT UP TO BEDSIDE CHAIR OFTEN TODAY. HAD A VISITOR. PT CONTINUING TO PROGRESS TOWARD GOALS. FALL PRECAUTIONS IN PLACE. CALL LIGHT WITHIN REACH. HOURLY ROUNDING PERFORMED.
--- NOTE | 2020-04-30 20:00 | NUR ---
RECEIVED REPORT AND ASSUMED CARE OF PT, ASSESSMENT COMPLETED. PT VERY PLEASANT. IV LEAKING AND RESTARTED WITHOUT DIFFICULTY. RLQ ABD TRAVIS COMPRESSED WITH SEROSANGUNIOUS DRAINAGE. MIDLINE INCISION WITH PREVENA WOUND VAC. O2 ON AT 4L/NC, NO SOA WHILE RESTING. TELEMETRY ON SHOWING SR WITH BBB AND FREQ PAC. WILL CONT TO MONITOR AND ASSIST NEEDED.
[2020-05-01] VITALS (7 sets, daily range): BP systolic 134–166; BP diastolic 64–90
[2020-05-01 04:35] LABS: HEMATOCRIT 39.7 % (37.0-47.0); HEMOGLOBIN 13.1 gm/dL (12.0-15.0); MCH 32.9 pg (26.0-34.0); MCHC 32.9 g/dL (28.0-37.0); MPV 10.1 fl. (7.2-11.1); NUCLEATED RBCS 0 /100WBC; PLATELET COUNT* 188 thou/uL (150-400); RBC 3.97 mil/uL (4.20-5.00); RDW-CV 14.4 % (10.5-14.5); WBC 9.8 thou/uL (4.0-11.0)
[2020-05-01 04:41] LABS: CREATININE 0.7 mg/dL (0.6-1.3); MAGNESIUM 1.8 mg/dL (1.8-2.4); POTASSIUM 3.7 mmol/L (3.5-5.1)
[2020-05-01 05:46] LABS: ABSOLUTE LYMPHOCYTES 1.7 thou/uL (0.8-5.3); ABSOLUTE MONOCYTES 0.5 thou/uL (0.0-1.2); ABSOLUTE NEUTROPHILS 7.6 thou/uL (1.6-8.1); ANISOCYTOSIS 1+; PLATELET ESTIMATE ADEQUATE; POIKILOCYTOSIS 1+
--- NOTE | 2020-05-01 06:30 | NUR ---
SLEPT WELL TONIGHT. ASSISTED TO BSC, TRANSFERS WELL WITH SBA. VOIDING WITHOUT DIFFICULTY, HAVING LIQ STOOLS. CONT TO BE SOA WITH ACTIVITY, O2 ON AT 4L/HFC. TELEMETRY CONT TO SR WITH BBB AND FREQ PAC. ASSESSMENT UNCHANGED. HS GOALS OF REST AND SAFETY ACHIEVED. HOURLY ROUNDING OBSERVED.
--- NOTE | 2020-05-01 10:09 | PATH ---
[address] [address] PATHOLOGY RPT PROCEDURE Name: GISELLE HAGAN Room: [address] IN ..#: [id number] Admission: 04/24/20 Date of : 36 Discharge: Report #: [id number] Path Case #: [id number] [facility] Accession Number: [id number] . 01 Material submitted: . ileum - ILEOCECUM . 01 Clinical history: . PERFORATED VISCOUS PERFORATED CECUM COPD WITH EXACEBRATION BILATERAL PNEUMONIA . 02 Diagnosis: Ileocecum: - Segment of benign ileum, appendix and colon with evidence of recent cecal transmural perforation and acute serositis and with focal residual tubular adenoma without high-grade dysplasia at perforation site. - One benign pericolic lymph node. See comment. (ESTHELA:wendy; 04/28/2020) MBIngrid 05/01/2020 0704 Local . 02 Comment: Review of Dr. Back's consultation report dated 04/26/2020 reveals the patient to have had an elective colonoscopy with a large polyp in the cecum resected the day before. (ESTHELA:wendy; 04/28/2020) . 02 Electronically signed: . William Rodrigez MD, Pathologist NPI- [id number] . 01 Gross description: . The specimen is received in formalin, labeled "Giselle Hgaan, ileocecum". Received is a right hemicolectomy specimen consisting of a segment of small bowel measuring 8.4 cm in length by 2.2 cm in diameter attached to a segment of cecum measuring 10.8 cm in length by 3.0 cm in diameter. Both margins are stapled closed. The serosal surface of the small bowel is pink-bowles and glistening in appearance. The serosal surface of the cecum is pink-bowles in appearance with a perforation identified measuring 0.7 x 0.3 cm, which is located 10.3 cm from the distal margin. The surrounding serosal surface is inked black. The attached pericolic fat measures up to 3.2 cm in thickness. Opening the specimen reveals light viera mucosa with normal architectural folds within the small bowel. The ileocecal valve is pink-viera and lipomatous in appearance. Immediately adjacent to the area of perforation, a metallic biopsy clip is identified within the cecum. The colonic mucosa is light viera to light brown in appearance with normal architectural folds. The appendix is present measuring 4.7 cm in length by 0.6 cm in diameter and [address] [place] [address] PATHOLOGY RPT PROCEDURE Name: GISELLE HAGAN Room: [address] IN [facility]#: [id number] Admission: 04/24/20 Date of : 36 Discharge: Report #: [id number] Path Case #: [id number] appears grossly unremarkable. Sectioning through the attached pericolic fat reveals a single readily identifiable lymph node measuring 0.5 cm. The specimen is submitted representatively as follows: . A1 proximal margin A2 distal margin A3 entire area of perforation A4 small bowel mucosa A5 ileocecal valve A6 colonic mucosa A7 medical office representative sections of appendix, to include proximal margin and bisected tip A8 intact lymph node. (CAA; 04/27/2020) QA/[facility] 04/27/2020 1501 Local . 02 Pathologist provided ICD-10: D12.0, K65.8 . 02 CPT . 434686 Specimen Comment: A courtesy copy of this report has been sent to [phone] Specimen Comment: Report sent to , / Performed at: 01 [facility] [address], [place], [place] [id number] MD Tk Sierra MD Phone: [phone] Performed at: 02 [facility] [address], [place], [place] [id number] MD William Rodrigez MD Phone: [phone]
--- NOTE | 2020-05-01 10:33 | NUR ---
ASSUMED CARE OF PT AT 0730. PT RESTING IN BED WAITING FOR BREAKFAST. PT A&0X4, DENIES ANY PAIN OR SHORTNESS OF BREATH AT THIS TIME. PT ON 4L NC SAT 93%. TRACING SR WITH BBB AND PACS ON THE VACUUM CONDITIONER OPERATOR. PT UP WITH 1 ASSIST TO BSC. CARDIOLOGY CONSULT IN PLACE- NO NEW ORDERS RECEIVED. PT DIET ADVANCED THIS AM AND PT TOLERATED WELL. PROVANA WOUND VAC IN PLACE AND PROBABLE REMOVAL TOMORROW 05/02. PT GOAL FOR TODAY IS TITRATE OXYGEN AND WORK WITH PT AND OT. AM ASSESSMENT CHARTED. MEDICATIONS PER MAY .PT REPOSITIONED EVERY 2 HOURS FOR COMFORT. HOURLY ROUNDING OBSERVED. BED IN LOW POSITION. CALL LIGHT WITHIN REACH. WILL CONTINUE PLAN OF CARE.
--- NOTE | 2020-05-01 13:48 | CON ---
[address] [address] CONSULTATION Name: HAGANSUKUMAR Isabella Room: [address] ADM IN M.R.#: [id number] Admission: 04/24/20 Attend Phys: Jay Jay De León Discharge: Date of : 36 Report #: [id number] THIS REPORT FOR: cc: Trina Coe MD, Katrina MD ~ Demetrius Dunlap MD [facility] DATE OF SERVICE: 05/01/2020 CARDIOLOGY CONSULTATION HISTORY OF PRESENT ILLNESS: The patient is an 80-year-old single white female who I was asked to see in the hospital today after she is noted to have a heart murmur. The patient denies previous history of heart disease. She is not very active at this time, but continues to live by herself. She was actually admitted to [place] a week ago for routine colonoscopy. She apparently had a polyp removed. She apparently developed a perforated bowel at that time and required laparotomy. She currently has a drain in place. She is scheduled to be discharged. During her postop period, she complained of shortness of breath. She had an echocardiogram performed last week that showed evidence of mild aortic stenosis. The peak gradient of 16 mmHg. Ejection fraction was 50%. The aortic valve was calcified. Because of aortic stenosis, Cardiology consultation was requested. The patient denies a history of chest pain. She does get short of breath if she over exerts herself. She has a chronic cough. Denies any edema. She denied any palpitation or syncope. PAST MEDICAL HISTORY: She has had previous hip surgery, cholecystectomy. She has a history of hypertension, diet-controlled diabetes. HOME MEDICATIONS: Consisted of the following: Albuterol inhaler, allopurinol, aspirin, losartan, niacin, omega-3 fatty acids, simvastatin. ALLERGIES: SHE HAS PREVIOUS INTOLERANCE TO CAPOTEN. FAMILY HISTORY: Unknown, she is adopted. SOCIAL HISTORY: She is , lives by herself, smokes a pack of cigarettes a day, 2-3 drinks of alcohol a week. REVIEW OF SYSTEMS: No history of stroke. She does have COPD. No history of liver disease, kidney disease. She had a skin cancer removed in the past. No chronic skin condition. No psychiatric illness. PHYSICAL EXAMINATION: GENERAL: Revealed an elderly female lying in bed. [place] [address] CONSULTATION Name: SUKUMAR HAGAN Room: [address]#: [id number] Admission: 04/24/20 Attend Phys: Jay Jay De León Discharge: Date of : 36 Report #: [id number] VITAL SIGNS: She had a blood pressure of 130/60, pulse is 80, she is afebrile. HEENT: She is anicteric. Conjunctivae pink. Mucous membranes moist. NECK: Veins do not appear distended. No carotid bruits. CHEST: Revealed prolonged expiratory phase of respiration. CARDIOVASCULAR: Regular rate and rhythm, grade 3 systolic ejection murmur at left sternal border. ABDOMEN: Soft. EXTREMITIES: Had no edema. Dorsalis pedis pulse cannot be palpated. SKIN: Cool and dry. NEUROLOGIC: Nonfocal. RADIOLOGICAL DATA: ECG showed a sinus rhythm with a right bundle branch block. Her chest x-ray showed cardiomegaly, some atelectasis, mild edema. She actually had a CT scan of the chest using a PE protocol that showed no pulmonary embolus. Pleural effusions, hyperinflated lung denney. LABORATORY WORK DATA: Sodium 139, potassium 3.7, creatinine 0.7. Liver function studies were normal. Albumin 2.1. Troponins all 0.06. BNP 6784. White blood cell count 9.8, hemoglobin 13.1. IMPRESSION AND RECOMMENDATIONS: 1. Mild aortic stenosis. 2. Chronic obstructive pulmonary disease. 3. Status post laparotomy for perforated viscus following colonoscopy. 4. Previous removal of colon polyp. 5. Hypertension. The patient is on an ARB. 6. Hyperlipidemia. The patient is on a statin drug. 7. History of diet-controlled glucose intolerance. 8. Tobacco abuse. 9. Chronic bronchitis. The patient does use inhalers. <ELECTRONICALLY SIGNED> By: Demetrius Dunlap MD, FACC 05/01/20 1348 [id number] [id number] Dunlap MD, FAC /nt
--- NOTE | 2020-05-01 13:51 | NUR ---
Nutrition: Pt admitted with abd SX. Has midline incision. Was working with PT at time of attempted visit today. Seen for LOS. Heart Healthy diet. BG 136, alb 2.1, prealb 20.1. Meds: prednisone, fish oil, aspirin, lasix. Wt was 141 at admit, today is recorded as 176# - PLEASE REWEIGH FOR ACCURACY. Otherwise, appears at low nutrition risk. Encourage good meal intake, reweigh.
--- NOTE | 2020-05-01 13:57 | NUR ---
CM INFORMED DURING PRIME ROUNDING OF THE PLAN OF CARE FOR THE PT. PLAN FOR THE PT TO TRANSITION TO [facility]. [facility]. PT REMAINS ON 4L O2 AND MAY NEED HOME OXYGEN AT D/C SHE DID NOT HAVE HOME O2 PRIOR TO ADMIT. PT MAY NEED HH AT D/C. CM WILL REMAIN AVAILABLE TO ASSIST AND FOLLOW NEEDED.
--- NOTE | 2020-05-01 20:00 | NUR ---
RECEIVED REPORT AND ASSUMED CARE OF PT, ASSESSMENT COMPLETED. O2 ON AT 3L/HFC. ABD WOUND WITH PREVENA WOUND VAC INTACT. TRAVIS COMPRESSED WITH SEROSANGUNIOUS DRAINAGE. PT UP TO BSC WITH STEADY GAIT. TELEMETRY ON SHOWING SR WITH BBB AND PAC. WILL CONT TO MONITOR AND ASSIST NEEDED.
[2020-05-02] VITALS (7 sets, daily range): BP systolic 121–146; BP diastolic 58–76
[2020-05-02 06:03] LABS: HEMATOCRIT 40.4 % (37.0-47.0); HEMOGLOBIN 13.1 gm/dL (12.0-15.0); MCH 32.9 pg (26.0-34.0); MCHC 32.5 g/dL (28.0-37.0); MCV 101.2 fL (80.0-100.0); MPV 9.8 fl. (7.2-11.1); RBC 3.99 mil/uL (4.20-5.00); RDW-CV 14.4 % (10.5-14.5); WBC 11.1 thou/uL (4.0-11.0)
--- NOTE | 2020-05-02 06:30 | NUR ---
SLEPT WELL TONIGHT. ASSISTED TO BSC. O2 REMAINS ON. NO CHANGES WITH ASSESSMENT. RESIDENT HERE THIS AM AND REMOVED WOUND VAC. DRSG TO MIDLINE ABD DRSG. TRAVIS REMAINS COMPRESSED. HS GOALS OF REST AND SAFETY ACHIEVED. HOURLY ROUNDING OBSERVED.
[2020-05-02 06:36] LABS: ALBUMIN 2.2 g/dL (3.4-5.0); ALKALINE PHOSPHATASE 55 U/L (46-116); ANION GAP 5 mmol/L (7-16); BUN 12 mg/dL (7-18); CALCIUM 8.6 mg/dL (8.5-10.1); CHLORIDE 104 mmol/L (98-107); CO2 31 mmol/L (21-32); CREATININE 0.8 mg/dL (0.6-1.3); GLUCOSE 92 mg/dL (70-99); MAGNESIUM 1.7 mg/dL (1.8-2.4); POTASSIUM 3.7 mmol/L (3.5-5.1); SGOT 14 U/L (15-37); SGPT 23 U/L (30-65); SODIUM 140 mmol/L (136-145); TOTAL BILIRUBIN 0.4 mg/dL (<0.1-1.0); TOTAL PROTEIN 5.7 g/dL (6.4-8.2)
[2020-05-02 06:38] LABS: SERUM ASSESSMENT Clear
[2020-05-02 06:54] LABS: CHOLESTEROL 96 mg/dL (<200); HDL CHOLESTEROL 53 mg/dL (>40); LDL CHOLESTEROL 27 mg/dL (<100); TC:HDL 1.8 Ratio (Not establshd); TRIGLYCERIDE 83 mg/dL (<150); VLDL 17 mg/dL (<40)
--- NOTE | 2020-05-02 08:58 | NUR ---
ASSUMED CARE OF PT AT 0730. PT SITTING UP WAITING FOR BREAKFAST. A&0X4, DENIES ANY PAIN OR SHORTNESS OF BREATH AT THIS TIME. TRACING SR WITH BBB AND PACS ON THE ELEVATOR ERECTOR. ON 3L NC SAT LOW-MID 90'S. PT UP WITH 1 ASSIST TO BSC. PROVANA WOUND VAC REMOVED THIS AM PRIOR TO START OF SHIFT. MIDLINE INCISION C/D/I. RLQ TRAVIS DRAIN IN PLACE TO DEPENDENT DRAINAGE. PT GOAL FOR TODAY IS TITRATE OXYGEN, WORK WITH PT AND OT AND DISCHARGE PLANNING TO ARU. AM ASSESSMENT CHARTED. MEDICATIONS PER MAY. PT REPOSITIONED EVERY 2 HOURS FOR COMFORT. HOURLY ROUNDING OBSERVED. BED IN LOW POSITION. CALL LIGHT WITHIN REACH. WILL CONTINUE PLAN OF CARE.
--- NOTE | 2020-05-02 10:02 | NUR ---
CM SPOKE TO THE PT TO DISCUSS D/C PLANNING AND FAMILY SUPPORT POST INPT REHAB. PT INFORMS THAT HER 'DIL IS ABLE TO ASSIST HER NEEDED AT D/C'. PT INFORMS THAT SHE WAS INDEPENDENT, ACTIVE AND RESIDED AT HOME ALONE PRIOR TO ADMIT AND IS HOPEFUL TO RETURN HOME INDEPENDENT. CM WILL REMAIN AVAILABLE TO ASSIST AND FOLLOW NEEDED.
[2020-05-02] MEDS ORDERED: PREDNISONE 20 M20 MG PO (11:37)
[2020-05-02] MEDS ORDERED: OXYCODONE HCL 55 MG PO (11:37)
[2020-05-02] MEDS ORDERED: LASIX 40 MG TAB40 M1 PO (11:40)
[2020-05-03] VITALS: BP 131/57
--- NOTE | 2020-05-03 04:41 | NUR ---
ASSUMED CARE OF PT AT 1900. PT IS ALERT AND ORIENTED. VSS. PERRLA. NO COMPLAINTS OF PAIN. MIDLINE INCISION IS CLEAN AND DRY. TRAVIS IN PLACE ON RIGHT SIDE ABDOMAN. PT IS IN SINUS RYTHM ON THE TELEMETRY. PT IS RESTING COMFORTABLY IN BED. RESPIRATIONS ARE EVEN AND NONLABORED. WILL CONTINUE TO MONITOR PT.
[2020-05-03 05:36] VITALS: BP 161/79
[2020-05-03 08:45] VITALS: BP 127/64
--- NOTE | 2020-05-03 11:05 | NUR ---
ASSUMED CARE OF PT THIS AM AROUND 0715- HOSPITAL WARD CLERK IN PLACE ORDERED, TRACING SR - UPON ASSESSMENT PT NOTED TO BE RESTING IN BED, WATCHING TV- PT A&O X4- CONT OF B/B- SBA WITH TRANSFERS FOR SAFETY- LCTA, RESP EVEN AND UN-LABORED- VSS, O2 SAT 91-92% ON 2L VIA NC- ABD SOFT/ROUND/NON-TENDER, BS X 4 QUADS- LAST BM REPORTED THIS AM- GOOD PO INTAKE NOTED THIS AM WITH BREAKFAST- BS MONITORED ORDERED- TRACE BLE EDEMA NOTED- PT DENIES ANY C/O PAIN/DISCOMFORT AT THIS TIME-D/C PLANNED TODAY POST RT RESET/EXERCISE- CALL LIGHT AND PERSONAL BELONGINGS WITH IN REACH- ALL NEEDS MET AT THIS TIME-WCTM
[2020-05-03 12:48] VITALS: BP 143/72
[2020-05-03 14:09] VITALS: BP 143/72
[2020-05-03 15:19] VITALS: BP 143/72
--- NOTE | 2020-05-03 16:11 | NUR ---
CM INFORMED BY PHYSICIAN OF PLAN TO D/ CPT HOME TODAY WITH HH AND HOME O2 @2L. CM ARANGED HH WITH PT'S CHOSEN HH OF [facility]. CM ARRANGED HOME O2 WITH [facility] AND THEY DELIVERED TANK TO PT'S ROOM. CM WILL REMAIN AVAILABLE TO ASSIST AND FOLLOW NEEDED. [facility] PHONE: [phone] [facility] PHONE: [phone]
== END 2020-05-03 15:20 | disposition home health service (06) | DRG 329 ==
LOC: M.ERS 11:42 → M.2W 14:02 → M.TBA-ER 14:02 → M.2W 17:04
PROVIDERS: Emergency Medicine; Internal Medicine; Internal Medicine Critical Care Medicine; Surgery; ADMIT Internal Medicine; ATTEND Internal Medicine
PROC: 0DTH0ZZ Resection of Cecum, Open Approach (ICD-10-PCS; principal; 2020-04-25)
PROC: 5A0945A Assistance with Respiratory Ventilation, 24-96 Consecutive Hours, High Flow/Velocity Cannula (ICD-10-PCS; principal; 2020-04-25)
PROC: 0D9670Z Drainage of Stomach with Drainage Device, Via Natural or Artificial Opening (ICD-10-PCS; 2020-04-26)
PROC: 5A0935A Assistance with Respiratory Ventilation, Less than 24 Consecutive Hours, High Flow/Velocity Cannula (ICD-10-PCS; 2020-04-28)
PROC: 5A0935A Assistance with Respiratory Ventilation, Less than 24 Consecutive Hours, High Flow/Velocity Cannula (ICD-10-PCS; 2020-04-29)
PROC: 5A0935A Assistance with Respiratory Ventilation, Less than 24 Consecutive Hours, High Flow/Velocity Cannula (ICD-10-PCS; 2020-04-30)
PROC: 5A0935A Assistance with Respiratory Ventilation, Less than 24 Consecutive Hours, High Flow/Velocity Cannula (ICD-10-PCS; 2020-05-01)
PROC: 5A0935A Assistance with Respiratory Ventilation, Less than 24 Consecutive Hours, High Flow/Velocity Cannula (ICD-10-PCS; 2020-05-03)
DX: K63.1 Perforation of intestine (nontraumatic) (principal); J96.21 Acute and chronic respiratory failure with hypoxia; R65.11 Systemic inflammatory response syndrome (SIRS) of non-infectious origin with acute organ dysfunction; J15.9 Unspecified bacterial pneumonia; J44.1 Chronic obstructive pulmonary disease with (acute) exacerbation; J44.0 Chronic obstructive pulmonary disease with (acute) lower respiratory infection; E44.1 Mild protein-calorie malnutrition; I47.1 Supraventricular tachycardia; E11.51 Type 2 diabetes mellitus with diabetic peripheral angiopathy without gangrene; I10 Essential (primary) hypertension; F17.210 Nicotine dependence, cigarettes, uncomplicated; I35.0 Nonrheumatic aortic (valve) stenosis; E78.5 Hyperlipidemia, unspecified; I27.20 Pulmonary hypertension, unspecified; Z96.641 Presence of right artificial hip joint; Z96.1 Presence of intraocular lens; E78.00 Pure hypercholesterolemia, unspecified; Z20.822 Contact with and (suspected) exposure to COVID-19; Z85.828 Personal history of other malignant neoplasm of skin; Z68.31 Body mass index [BMI] 31.0-31.9, adult; Z79.82 Long term (current) use of aspirin; Z98.42 Cataract extraction status, left eye; Z98.41 Cataract extraction status, right eye; Z90.49 Acquired absence of other specified parts of digestive tract; Z79.899 Other long term (current) drug therapy; Z88.5 Allergy status to narcotic agent; Z88.8 Allergy status to other drugs, medicaments and biological substances

== ENCOUNTER → 2020-06-14 | Outpatient (CLI) | payer MEDICARE ==
[~2020-06-14] MED LIST changes: +LASIX 40 MG TAB40 M1 PO; +OXYCODONE HCL 55 MG PO; +PREDNISONE 20 M20 MG PO; +PROAIR HFA8.5 GM INH
[2020-06-14 10:59] LABS: CALCIUM 9.1 mg/dL (8.5-10.1); CREATININE 0.7 mg/dL (0.6-1.3); MAGNESIUM 1.9 mg/dL (1.8-2.4); POTASSIUM 4.6 mmol/L (3.5-5.1)
== END ==
LOC: M.LAB 10:13
PROVIDERS: ATTEND Internal Medicine Critical Care Medicine
DX: J96.21 Acute and chronic respiratory failure with hypoxia (principal); I70.0 Atherosclerosis of aorta; M75.101 Unspecified rotator cuff tear or rupture of right shoulder, not specified as traumatic

== ENCOUNTER → 2020-06-16 | Outpatient (CLI) | payer MEDICARE | LOC: M.CT 12:49 | PROVIDERS: ATTEND Internal Medicine Critical Care Medicine | DX: J43.9 Emphysema, unspecified (principal); R59.0 Localized enlarged lymph nodes; M47.812 Spondylosis without myelopathy or radiculopathy, cervical region; M47.814 Spondylosis without myelopathy or radiculopathy, thoracic region; J90 Pleural effusion, not elsewhere classified; J98.11 Atelectasis ==

== ENCOUNTER → 2020-07-27 | Outpatient (CLI) | payer MEDICARE | LOC: M.RAD 14:23 | PROVIDERS: ATTEND Internal Medicine Critical Care Medicine | DX: R91.8 Other nonspecific abnormal finding of lung field (principal); J96.11 Chronic respiratory failure with hypoxia; J44.9 Chronic obstructive pulmonary disease, unspecified ==

== ENCOUNTER → 2020-11-07 | Outpatient (CLI) | payer MEDICARE ==
[2020-11-07 14:51] LABS: CALCIUM 9.4 mg/dL (8.5-10.1); CREATININE 0.9 mg/dL (0.6-1.3); MAGNESIUM 1.9 mg/dL (1.8-2.4); POTASSIUM 4.2 mmol/L (3.5-5.1)
== END ==
LOC: M.LAB 14:25
PROVIDERS: ATTEND Internal Medicine Critical Care Medicine
DX: J96.11 Chronic respiratory failure with hypoxia (principal); E87.79 Other fluid overload

== ENCOUNTER → 2020-12-20 | Outpatient (CLI) | payer MEDICARE | LOC: M.RAD 12:44 | PROVIDERS: ATTEND Family Medicine | DX: M85.80 Other specified disorders of bone density and structure, unspecified site (principal); Z78.0 Asymptomatic menopausal state ==

== ENCOUNTER 2021-01-15 14:08 | Inpatient (IN) | payer MEDICARE ==
[~2021-01-15] VITALS: Ht 160 cm; Wt 62.1 kg
[2021-01-15 14:17] VITALS: BP 125/61
[2021-01-15 14:56] LABS: URINE BILIRUBIN NEGATIVE (Negative); URINE BLOOD NEGATIVE (Negative); URINE CLARITY CLEAR; URINE COLOR YELLOW; URINE GLUCOSE-RANDOM NEGATIVE (Negative); URINE KETONES NEGATIVE (Negative); URINE LEUKOCYTES-REFLEX NEGATIVE (Negative); URINE NITRITE-REFLEX NEGATIVE (Negative); URINE PROTEIN NEGATIVE (Negative); URINE SPECIFIC GRAVITY 1.015 (1.005-1.030); URINE UROBILINOGEN 0.2 E.U./dl (0.2-1.0)
[2021-01-15 14:57] LABS: HEMATOCRIT 36.2 % (37.0-47.0); HEMOGLOBIN 11.8 gm/dL (12.0-15.0); MCH 30.1 pg (26.0-34.0); MCHC 32.7 g/dL (28.0-37.0); MCV 91.9 fL (80.0-100.0); MPV 9.6 fl. (7.2-11.1); NUCLEATED RBCS 0 /100WBC; PLATELET COUNT* 222 thou/uL (150-400); RBC 3.94 mil/uL (4.20-5.00)
[2021-01-15 15:09] LABS: CALCIUM 9.2 mg/dL (8.5-10.1); CREATININE 0.8 mg/dL (0.6-1.3)
[2021-01-15 15:10] LABS: POTASSIUM 4.6 mmol/L (3.5-5.1)
[2021-01-15 15:19] LABS: ALBUMIN 2.9 g/dL (3.4-5.0); MAGNESIUM 1.9 mg/dL (1.8-2.4); TOTAL BILIRUBIN 0.5 mg/dL (<0.1-1.0); TOTAL PROTEIN 7.8 g/dL (6.4-8.2)
[2021-01-15 16:00] LABS: ABSOLUTE LYMPHOCYTES 1.3 thou/uL (0.8-5.3); ABSOLUTE MONOCYTES 0.4 thou/uL (0.0-1.2); ABSOLUTE NEUTROPHILS 7.4 thou/uL (1.6-8.1); PLATELET ESTIMATE ADEQUATE
[2021-01-15 19:00] VITALS: BP 121/56
[2021-01-15 23:00] VITALS: BP 127/76
--- NOTE | 2021-01-15 23:34 | NUR ---
notified dr yuan of elevated d dimer
[2021-01-16] VITALS (8 sets, daily range): BP systolic 104–130; BP diastolic 50–104
[2021-01-16 01:38] LABS: INFLUENZA A ANTIGEN Negative (Negative); INFLUENZA B ANTIGEN Negative (Negative)
--- NOTE | 2021-01-16 07:55 | NUR ---
PT GIVEN REGULAR DIET BREAKFAST TRAY
--- NOTE | 2021-01-16 08:50 | EKG ---
[place] [id number] ELECTROCARDIOGRAM REPORT Name: SUKUMAR HAGAN Room: [place] [address] ADM IN [facility]#: [id number] Admission: 01/15/21 Attend Phys: Kristyn Hatfield, Discharge: Date of : 36 Date of Service: 01/15/21 1422 Report #: [id number] THIS REPORT FOR: //name// [facility] ED Test Date: 2021-01-15 Test Time: 14:22:32 Pat Name: SUKUMAR HAGAN Department: Room: [facility] Gender: F Laundry Aide: CARLENE : 1940 Requested By: Andrea Chiu Order Number: [id number] MD: Mauricio Rushing Measurements Intervals [place] Rate: 84 P: SC: QRS: 125 QRSD: 131 T: -22 QT: 408 QTc: 483 Interpretive Statements Atrial flutter with predominant 3:1 AV block Right bundle branch block Compared to ECG 04/24/2020 12:08:55 AV block, advanced (high-grade) now present Sinus rhythm no longer present Electronically Signed On 01-16-2021 8:50:15 MANAGER VAN by Mauricio Rushing [email or web address] <ELECTRONICALLY SIGNED> By: Mauricio Rushing MD, FACC 01/16/21 0850 142 142 Mauricio Rushing MD, FACC /EPI
--- NOTE | 2021-01-16 10:38 | NUR ---
A PUREWICK WAS APPLIED TO THE PATIENT AT THIS TIME
--- NOTE | 2021-01-16 13:10 | 2DMMODE ---
[place] [address] 2 D/M-MODE ECHOCARDIOGRAM Name: SUKUMAR HAGAN Room: [facility] ADM IN [facility]#: [id number] Admission: 01/15/21 Attend Phys: Kristyn Hatfield, Discharge: Date of : 36 Date of Service: 01/16/21 1309 Report #: [id number] THIS REPORT FOR: cc: Trina Coe MD, Katrina MD Holkins,Andi Taylor MD [facility] ~ APPROVED REPORT Study performed: 01/16/2021 10:38:38 EXAM: Limited 2D Echocardiogram Patient Location: In-Patient Room #: er Status: routine BSA: 1.66 HR: 107 bpm BP: 121/73 mmHg Rhythm: NSR Other Information Study Quality: Good Indications Re evaluate EF Volumes Left Atrial Volume (Systole) LA ESV Index: 43.70 mL/m2 Left Ventricle The left ventricle is normal size. There is mild global hypokinesis of the left ventricle. There is normal left ventricular wall thickness. Left ventricular systolic function is mildly decreased. LVEF is 45-50%. This study is not technically sufficient to allow evaluation of the LV diastolic function due to atrial fibrillation. Right Ventricle The right ventricle is normal size. The right ventricular systolic function is normal. Atria Left atrium is mildly dilated. Right [place]rium [place] [address] 2 D/M-MODE ECHOCARDIOGRAM Name: SUKUMAR HAGAN Room: [place] [address] ADM IN M.R.#: [id number] Admission: 01/15/21 Attend Phys: Kristyn Hatfield, Discharge: Date of : 36 Date of Service: 01/16/21 1309 Report #: [id number] Aortic Valve Moderate aortic valve sclerosis. Mitral Valve The mitral valve is normal in structure. Tricuspid Valve The tricuspid valve is normal in structure. Pulmonic Valve The pulmonary valve is normal in structure. Great Vessels The aortic root is normal in size. IVC is normal in size and collapses >50% with inspiration. Pericardium There is no pericardial effusion. <Conclusion> The left ventricle is normal size. There is normal left ventricular wall thickness. Left ventricular systolic function is mildly decreased. LVEF is 45-50%. This study is not technically sufficient to allow evaluation of the LV diastolic function due to atrial fibrillation. The right ventricle is normal size. Left atrium is mildly dilated. Right atrium is mildly dilated. Moderate aortic valve sclerosis. The mitral valve is normal in structure. The tricuspid valve is normal in structure. IVC is normal in size and collapses >50% with inspiration. There is no pericardial effusion. There is mild global hypokinesis of the left ventricle. <ELECTRONICALLY SIGNED> By: Andi Duarte MD, FACC 01/16/21 1309 1309 1309 Andi Duarte MD, [facility] /INF
[2021-01-16 15:33] LABS: APTT 26.8 Seconds (25.0-31.3); INR 1.2; PROTIME 11.8 Seconds (9.20-11.50)
--- NOTE | 2021-01-16 19:38 | NUR ---
ARRIVED [address] [address]
[2021-01-17 04:17] VITALS: BP 147/75
[2021-01-17 04:19] LABS: HEMATOCRIT 34.5 % (37.0-47.0); HEMOGLOBIN 11.1 gm/dL (12.0-15.0); MCH 29.3 pg (26.0-34.0); MCHC 32.1 g/dL (28.0-37.0); MCV 91.2 fL (80.0-100.0); RBC 3.78 mil/uL (4.20-5.00); RDW-CV 15.7 % (10.5-14.5); WBC 14.8 thou/uL (4.0-11.0)
[2021-01-17 04:40] LABS: ALBUMIN 2.7 g/dL (3.4-5.0); CALCIUM 8.5 mg/dL (8.5-10.1); MAGNESIUM 1.9 mg/dL (1.8-2.4); POTASSIUM 3.4 mmol/L (3.5-5.1); TOTAL BILIRUBIN 0.3 mg/dL (<0.1-1.0); TOTAL PROTEIN 7.1 g/dL (6.4-8.2)
[2021-01-17 12:00] VITALS: BP 120/45
[2021-01-17 14:53] LABS: BF RBC 535 /mm3; CLARITY SLIGHTLY HAZY; SOURCE THORACENTESIS; TOTAL CELL COUNT 511 /mm3; TOTAL VOLUME 900 ml
[2021-01-17 15:55] LABS: BF LYMPHOCYTES 51 %; BF MONOCYTES 17 %; BF POLYS 32 %; BF TISSUE 2 /100 WBC
--- NOTE | 2021-01-17 16:59 | NUR ---
CM ASSESSMENT ASSESSMENT COMPLETED WITH PT SON, LAKIA ([phone]). PT LIVES ALONE AND HAS NO HISTORY OF ADL OR DME SUPPORT - ASIDE FROM OXYGEN USE. PT HAS NO HISTORY OF SKILLED OR REHAB SERVICES. PT HAD HH SERVICES AFTER A HIP REPLACEMENT 15 YEARS AGO (UNKNOWN PROVIDER). CM TO CONTINUE TO FOLLOW PT.
[2021-01-17 17:00] VITALS: BP 117/58
[2021-01-17 19:50] VITALS: BP 114/55
[2021-01-18 00:49] VITALS: BP 126/70
[2021-01-18 04:53] LABS: HEMATOCRIT 32.7 % (37.0-47.0); HEMOGLOBIN 10.5 gm/dL (12.0-15.0); MCH 29.6 pg (26.0-34.0); MCHC 32.2 g/dL (28.0-37.0); MCV 92.2 fL (80.0-100.0); MPV 9.9 fl. (7.2-11.1); RBC 3.55 mil/uL (4.20-5.00); RDW-CV 16.1 % (10.5-14.5); WBC 12.4 thou/uL (4.0-11.0)
[2021-01-18 05:00] VITALS: BP 142/74
[2021-01-18 05:11] LABS: ALBUMIN 2.6 g/dL (3.4-5.0); CALCIUM 7.7 mg/dL (8.5-10.1); CREATININE 0.9 mg/dL (0.6-1.3); MAGNESIUM 1.9 mg/dL (1.8-2.4); POTASSIUM 3.5 mmol/L (3.5-5.1); TOTAL BILIRUBIN 0.3 mg/dL (<0.1-1.0); TOTAL PROTEIN 6.6 g/dL (6.4-8.2)
[2021-01-18 08:30] VITALS: BP 140/68
[2021-01-18 11:37] LABS: SOURCE THORACENTESIS
[2021-01-18 12:24] VITALS: BP 132/60
[2021-01-18 16:00] VITALS: BP 135/69
[2021-01-18 16:07] LABS: BODY FLUID PROTEIN 2.4 g/dL (())
--- NOTE | 2021-01-18 17:30 | NUR ---
CM FOLLOWUP PT NOT MEDICALLY CLEAR TO DC. CM TO CONTINUE TO FOLLOW PT.
[2021-01-18 20:00] VITALS: BP 141/61
[2021-01-19] VITALS (7 sets, daily range): BP systolic 122–146; BP diastolic 45–74
--- NOTE | 2021-01-19 05:13 | NUR ---
PT AO X4 SATTING APPROPRIATELY ON 4L NC, AFIB ON TELEMONITOR. IV ANTIBIOTICS PER EMAR. PT DENIES PAIN. MAKES NEEDS KNOWN WITH HOURLY ROUNDING. CALL LIGHT IN REACH AND BED ALARM ON FOR PT SAFETY
--- NOTE | 2021-01-19 13:08 | PATH ---
[address] [address] PATHOLOGY RPT PROCEDURE Name: SUKUMAR HAGAN Room: [address] IN [facility]#: [id number] Admission: 01/15/21 Date of : 36 Discharge: Report #: [id number] Path Case #: [id number] Note [facility] Accession Number: [id number] TESTS RESULT FLAG UNITS REF RANGE LAB Clinician Provided Cytology Information No. of containers..01 Other (Miscellaneous) Source: RIGHT PLERUAL FLUID DIAGNOSIS: RIGHT PLERUAL FLUID INCONCLUSIVE. COMMENT, FEW ATYPICAL CELLS ARE PRESENT. THE CELL BLOCK WAS NOT MADE BECAUSE IT IS POORLY CELLULAR SO IMMUNOPEROXIDASE STAINS COULD NOT BE DONE. SUGGEST CLINICAL CORRELATION. Signed out by: 01 Tk Sierra MD, Pathologist NPI- [id number] Performed by: Jose De Jesus Butts, Sap Pp Consultant ([facility]) Gross description: 01 12ML, CLEAR, YELLOW /LCS 01/18/2021 1826 Local FLAG LEGEND: L-Low Normal,H-High Normal,LL-Alert Low,HH-Alert High <-Panic Low,>-Panic High,A-Abnormal,AA-Critical Abnormal Performed at: [address] [place] [address] Tk Sierra MD, Specimen Comment: A courtesy copy of this report has been sent to [phone] Specimen Comment: Report sent to Performed at: [address], [place], [place] [id number] MD Tk Sierra MD Phone: [phone]
--- NOTE | 2021-01-19 17:33 | NUR ---
CM FOLLOWUP PT NOT MEDICALLY CLEAR TO DISCHARGE, BUT WILL DISCHARGE HOME WITH HH WHEN CLEARED. PT NEEDS SAT/EX OXYGEN TEST PRIOR TO DISCHARGE TO ARRANGE OXYGEN IF NEEDED. PT REFERRED FOR HH [facility]IA [facility] ([phone]).
[2021-01-20] VITALS: BP 128/63
[2021-01-20 04:00] VITALS: BP 118/68
[2021-01-20 04:14] LABS: HEMATOCRIT 34.7 % (37.0-47.0); HEMOGLOBIN 11.3 gm/dL (12.0-15.0); MCH 29.6 pg (26.0-34.0); MCHC 32.6 g/dL (28.0-37.0); MPV 10.2 fl. (7.2-11.1); RBC 3.81 mil/uL (4.20-5.00); WBC 10.8 thou/uL (4.0-11.0)
[2021-01-20 04:28] LABS: CALCIUM 7.7 mg/dL (8.5-10.1); CREATININE 0.9 mg/dL (0.6-1.3); MAGNESIUM 1.9 mg/dL (1.8-2.4); POTASSIUM 3.5 mmol/L (3.5-5.1)
--- NOTE | 2021-01-20 04:42 | NUR ---
PT ALERT AND ORIENTED, 4L-NC O2, UP X1 TO CHAIR AND BSC. SHE RECEIVED ALL MEDS SCHEDULED, PRODUCTIVE COUGH REPORTED. NO PAIN/NAUSEA OR VOMITING. SKIN GOOD. EDEMA 1+ BLE. ACHS (STEROIDS) SLEPT WELL ALL SHIFT, USES CALL LIGHT FOR ASSISTANCE. WILL CONTINUE TO MONITOR.
[2021-01-20 08:10] VITALS: BP 127/50
[2021-01-20 12:00] VITALS: BP 143/82
[2021-01-20 15:34] VITALS: BP 133/86
--- NOTE | 2021-01-20 19:00 | NUR ---
PT PERSISTENTLY TACHY IN THE 120S THROUGH THE AFTERNOON. PRN LOPRESSOR IV GIVEN WITH NO CHANGE IN HR. DR. DESOUZA CALLED. SHE ORDERED 12.5 MG BID OF LOPRESSOR. IT AGAIN WAS NOT REALLY EFFECTIVE AND DR. DESOUZA WAS AGAIN CALLED. PT WAS GIVEN ANOTHER 12.5 MG OF LOPRESSOR AND HER SCHEDULED DOSES WERE CHANGED TO 25 MG BID. AFTER THE SECOND DOSE OF 12.5 MG, SHE IS NOW RESTING WITH A HR IN THE 80S.
[2021-01-20 20:00] VITALS: BP 115/73
[2021-01-21] VITALS: BP 123/79
[2021-01-21 04:00] VITALS: BP 113/76
--- NOTE | 2021-01-21 04:43 | NUR ---
NEW IV IN LEFT WRIST, 4L-O2-NC, ALERT AND ORIENTED, UP WITH ASSISTANCE TO BSC, USES CALL LIGHT FOR HELP. BREATHING TREATMENTS SCHEDULED. RECEIVED ALL MEDS SCHEDULED. NO REPORTS OF ANY PAIN/NAUSEA/VOMITING. SHE SLEPT VERY WELL THIS SHIFT WITHOUT ANY ISSUES. HEARTRATE DID ELEVATE TO 115-120 BUT REMAINED MOSTLY IN 90'S THIS SHIFT.
[2021-01-21 08:30] VITALS: BP 127/61
[2021-01-21 12:00] VITALS: BP 147/66
[2021-01-21] MEDS ORDERED: METOPROLOL TART25 MG PO (13:59)
[2021-01-21] MEDS ORDERED: PREDNISONE 10 M10 MG PO (14:01)
[2021-01-21] MEDS ORDERED: LEVOFLOXACIN500 MG PO (14:01)
[2021-01-21 15:21] VITALS: BP 147/66
--- NOTE | 2021-01-21 15:31 | NUR ---
I ASSUMED CARE OF THE PATIENT AT 0700. SHE IS ALERT AND ORIENTED X4 AND IS UP WITH STANDBY ASSIST TO THE CHAIR, COMMODE AND BATHROOM. BED IS IN THE LOW LOCKED POSITION AND CALL LIGHT IS IN REACH. PATIENT NEEDS ARE MET DURING HOURLY ROUNDING. PAIN IS DENIED. SON VISITED AND WAS CALLED WITH FOLLOW UP INFORMATION. SHE WILL D/C TO HOME AT 1600 WHEN LAKIA PICKS HER UP. REST AND EXERCISE REQUIRES 4L NC OXYGEN WHILE WALKING AND 7L NC WHILE SLEEPING. FAMILY WILL BRING AN OXYGEN TANK FOR TRANSPORT FROM HOME. BLOOD GLUCOSE IS MONITORED WELL CARDIAC STATUS. IV IS D/C'D PRIOR TO DISCHARGE. WILL CONTINUE TO MONITOR.
== END 2021-01-21 16:18 | disposition home health service (06) | DRG 177 ==
LOC: M.ERS 14:08 → M.TBA-ER 15:08 → M.ORTHSURG 01-16 18:23
PROVIDERS: Emergency Medicine; Family Medicine; ADMIT Internal Medicine; ATTEND Internal Medicine
PROC: 0W993ZZ Drainage of Right Pleural Cavity, Percutaneous Approach (ICD-10-PCS; principal; 2021-01-17)
DX: J15.6 Pneumonia due to other Gram-negative bacteria (principal); J96.22 Acute and chronic respiratory failure with hypercapnia; J96.21 Acute and chronic respiratory failure with hypoxia; J44.0 Chronic obstructive pulmonary disease with (acute) lower respiratory infection; J44.1 Chronic obstructive pulmonary disease with (acute) exacerbation; J91.8 Pleural effusion in other conditions classified elsewhere; I50.20 Unspecified systolic (congestive) heart failure; Z20.822 Contact with and (suspected) exposure to COVID-19; E78.00 Pure hypercholesterolemia, unspecified; F17.210 Nicotine dependence, cigarettes, uncomplicated; I35.0 Nonrheumatic aortic (valve) stenosis; Z96.641 Presence of right artificial hip joint; E78.5 Hyperlipidemia, unspecified; I11.0 Hypertensive heart disease with heart failure; E11.51 Type 2 diabetes mellitus with diabetic peripheral angiopathy without gangrene; Z98.42 Cataract extraction status, left eye; Z98.41 Cataract extraction status, right eye; Z90.49 Acquired absence of other specified parts of digestive tract; Z88.6 Allergy status to analgesic agent; Z88.8 Allergy status to other drugs, medicaments and biological substances; Z86.711 Personal history of pulmonary embolism; Z86.010 Personal history of colon polyps; Z95.820 Peripheral vascular angioplasty status with implants and grafts; Z79.899 Other long term (current) drug therapy; Z28.21 Immunization not carried out because of patient refusal

== ENCOUNTER → 2021-02-06 | Outpatient (CLI) | payer MEDICARE ==
[~2021-02-06] MED LIST changes: +LEVOFLOXACIN500 MG PO; +METOPROLOL TART25 MG PO; +PREDNISONE 10 M10 MG PO
[2021-02-06 12:31] LABS: HEMATOCRIT 35.8 % (37.0-47.0); HEMOGLOBIN 11.7 gm/dL (12.0-15.0); MCH 29.7 pg (26.0-34.0); MCHC 32.8 g/dL (28.0-37.0); MCV 90.7 fL (80.0-100.0); MPV 9.2 fl. (7.2-11.1); NUCLEATED RBCS 0 /100WBC; PLATELET COUNT* 157 thou/uL (150-400); RBC 3.94 mil/uL (4.20-5.00); RDW-CV 18.1 % (10.5-14.5); WBC 8.1 thou/uL (4.0-11.0)
[2021-02-06 12:47] LABS: ALBUMIN 2.6 g/dL (3.4-5.0); CALCIUM 8.7 mg/dL (8.5-10.1); POTASSIUM 4.1 mmol/L (3.5-5.1); TOTAL BILIRUBIN 0.7 mg/dL (<0.1-1.0); TOTAL PROTEIN 6.5 g/dL (6.4-8.2)
[2021-02-06 13:23] LABS: ABSOLUTE EOSINOPHILS 0.1 thou/uL (0.0-0.7); ABSOLUTE LYMPHOCYTES 0.2 thou/uL (0.8-5.3); ABSOLUTE MONOCYTES 0.3 thou/uL (0.0-1.2); ABSOLUTE NEUTROPHILS 7.5 thou/uL (1.6-8.1); PLATELET ESTIMATE ADEQUATE
== END ==
LOC: M.LAB 11:38
PROVIDERS: ATTEND Nurse Practitioner
DX: J84.89 Other specified interstitial pulmonary diseases (principal); I50.42 Chronic combined systolic (congestive) and diastolic (congestive) heart failure; I48.20 Chronic atrial fibrillation, unspecified

== ENCOUNTER → 2021-02-13 | Outpatient (CLI) | payer MEDICARE ==
[2021-02-13 14:46] LABS: BE 8.1 mmol/L (-2 to +3); PCO2 48.6 mmHg (35.0-45.0); PO2 70.7 mmHg (75.0-100.0); pH 7.454 (7.340-7.450)
== END ==
LOC: M.LAB 14:22
PROVIDERS: ATTEND Internal Medicine Critical Care Medicine
DX: J96.21 Acute and chronic respiratory failure with hypoxia (principal); J44.1 Chronic obstructive pulmonary disease with (acute) exacerbation

== ENCOUNTER → 2021-03-21 | Outpatient (CLI) | payer MEDICARE ==
--- NOTE | 2021-03-21 14:59 | 2DMMODE ---
[place] [address] 2 D/M-MODE ECHOCARDIOGRAM Name: SUKUMAR HAGAN Room: [facility]#: [id number] Admission: 03/21/21 Attend Phys: Yash Cortés Discharge: Date of : 36 Date of Service: 03/21/21 1458 Report #: [id number] THIS REPORT FOR: cc: Trina Coe MD, Katrina MD Blick,Demetrius Bowen MD [facility] ~ APPROVED REPORT Study performed: 03/21/2021 14:03:07 EXAM: Comprehensive 2D, Doppler, and color-flow Echocardiogram Patient Location: Out-Patient BSA: 2.11 HR: 114 bpm BP: 110/60 mmHg Other Information Study Quality: Good Indications Hypertension/HDD 2D Dimensions IVSd: 11.90 (7-11mm) LVOT Diam: 20.92 (18-24mm) LVDd: 44.94 mm PWd: 10.91 (7-11mm) Ascending Ao: 26.21 (22-36mm) LVDs: 32.05 (25-40mm) Aortic Root: 28.94 mm Volumes Left Atrial Volume (Systole) LA ESV Index: 16.60 mL/m2 Aortic Valve AoV Peak Mich.: 2.00 m/s AO Peak Gr.: 15.92 mmHg LVOT Max P.28 mmHg AO Mean Gr.: 9.54 mmHg LVOT Mean P.07 mmHg LVOT Max V: 0.75 m/s AO V2 VTI: 34.47 cm LVOT Mean V: 0.48 m/s ROSIE (VTI): 1.45 cm2 LVOT V1 VTI: 14.59 cm Mitral Valve E/A Ratio: 2.08 [place] [address] 2 D/M-MODE ECHOCARDIOGRAM Name: SUKUMAR HAGAN Room: [facility]#: [id number] Admission: 03/21/21 Attend Phys: Yash Cortés Discharge: Date of : 36 Date of Service: 03/21/21 1458 Report #: [id number] MV Decel. Time: 136.75 ms MV E Max Mich.: 0.93 m/s MV PHT: 39.66 ms MVA (PHT): 5.55 cm2 TDI E/Lateral E': 7.15 E/Medial E': 7.75 Medial E' Mich.: 0.12 m/s Lateral E' Mich.: 0.13 m/s Pulmonary Valve PV Peak Mich.: 0.81 m/s PV Peak Gr.: 2.66 mmHg Tricuspid Valve RAP Estimate: 5.00 mmHg TR Peak Gr.: 29.01 mmHg RVSP: 34.01 mmHg PA Pressure: 34.01 mmHg Left Ventricle The left ventricle is normal size. There is normal LV segmental wall motion. There is normal left ventricular wall thickness. Left ventricular systolic function is normal. The left ventricular ejection fraction is within the normal range. LVEF is 55-60%. This study is not technically sufficient to allow evaluation of the LV diastolic function. Right Ventricle The right ventricle is normal size. The right ventricular systolic function is normal. Atria The left atrium size is normal. The right atrium size is normal. Aortic Valve Aortic valve is calcified. No aortic regurgitation is present. There is mild aortic valvular stenosis. Mitral Valve The mitral valve is normal in structure. Mild mitral regurgitation. No evidence of mitral valve stenosis. Tricuspid Valve The tricuspid valve is normal in structure. Mild tricuspid regurgitation. estimated pa pressure 35 [place] [address] 2 D/M-MODE ECHOCARDIOGRAM Name: SUKUMAR HAGAN Room: [facility]#: [id number] Admission: 03/21/21 Attend Phys: Yash Cortés Discharge: Date of : 36 Date of Service: 03/21/21 1458 Report #: [id number] Pulmonic Valve The pulmonary valve is normal in structure. Mild pulmonic regurgitation. Great Vessels The aortic root is normal in size. IVC is normal in size and collapses >50% with inspiration. Pericardium There is no pericardial effusion. <Conclusion> LVEF is 55-60%. There is mild aortic valvular stenosis. Mild mitral regurgitation. Mild tricuspid regurgitation. estimated pa pressure 35 mm Hg <ELECTRONICALLY SIGNED> By: Demetrius Dunlap MD, [facility] 03/21/21 1458 1458 1458 Demetrius Dunlap MD, FACC /INF
== END ==
LOC: M.CRD 12:54
PROVIDERS: ATTEND Internal Medicine
DX: I08.8 Other rheumatic multiple valve diseases (principal); I10 Essential (primary) hypertension; I48.91 Unspecified atrial fibrillation

== ENCOUNTER → 2021-03-27 | Outpatient (CLI) | payer MEDICARE | LOC: M.RAD 10:30 | PROVIDERS: ATTEND Nurse Practitioner | DX: J84.89 Other specified interstitial pulmonary diseases (principal); R91.8 Other nonspecific abnormal finding of lung field; I50.32 Chronic diastolic (congestive) heart failure ==

== ENCOUNTER → 2021-04-02 | Outpatient (CLI) | payer MEDICARE ==
[2021-04-02 14:19] LABS: CALCIUM 9.2 mg/dL (8.5-10.1); CREATININE 0.9 mg/dL (0.6-1.3); POTASSIUM 3.3 mmol/L (3.5-5.1)
== END ==
LOC: M.LAB 13:39
PROVIDERS: ATTEND Nurse Practitioner
DX: I50.32 Chronic diastolic (congestive) heart failure (principal)

== ENCOUNTER 2021-04-04 19:04 | Inpatient (IN) | payer MEDICARE ==
[~2021-04-04] VITALS: Ht 160 cm; Wt 69.9 kg
[~2021-04-04 19:04] MED LIST changes: +CENTRUM SILVER1 EAC2 PO; -MULTIVITAMINS PO
[2021-04-04 19:14] VITALS: BP 116/62
[2021-04-04] MEDS ORDERED: ALENDRONATE SOD35 MG PO (19:21)
[2021-04-04] MEDS ORDERED: PAROXETINE HCL20 MG PO (19:22)
[2021-04-04] MEDS ORDERED: ALLOPURINOL 10100 M3 PO (19:22)
[2021-04-04] MEDS ORDERED: KLOR-CON M2020 MEQ PO ×2 (19:25→20:44)
[2021-04-04 20:05] LABS: BE 12.7 mmol/L (-2 to +3); PO2 92.6 mmHg (75.0-100.0); pH 7.493 (7.340-7.450)
[2021-04-04 20:07] LABS: HEMATOCRIT 36.2 % (37.0-47.0); HEMOGLOBIN 12.1 gm/dL (12.0-15.0); MCH 28.8 pg (26.0-34.0); MCHC 33.5 g/dL (28.0-37.0); MPV 8.2 fl. (7.2-11.1); NUCLEATED RBCS 0 /100WBC; PLATELET COUNT* 274 thou/uL (150-400); RBC 4.21 mil/uL (4.20-5.00); RDW-CV 17.4 % (10.5-14.5); WBC 14.3 thou/uL (4.0-11.0)
[2021-04-04 20:17] LABS: PCO2 50.6 mmHg (35.0-45.0)
[2021-04-04 20:17] LABS: CALCIUM 9.2 mg/dL (8.5-10.1); CREATININE 0.7 mg/dL (0.6-1.3); POTASSIUM 3.9 mmol/L (3.5-5.1)
[2021-04-04 20:22] LABS: MAGNESIUM 1.5 mg/dL (1.8-2.4); TOTAL BILIRUBIN 0.4 mg/dL (<0.1-1.0)
[2021-04-04 20:39] LABS: ABSOLUTE EOSINOPHILS 0.1 thou/uL (0.0-0.7); ABSOLUTE LYMPHOCYTES 1.4 thou/uL (0.8-5.3); ABSOLUTE MONOCYTES 0.6 thou/uL (0.0-1.2); ABSOLUTE NEUTROPHILS 12.2 thou/uL (1.6-8.1)
[2021-04-04] MEDS ORDERED: BUDESONIDE0.5 MG/2 M INH (20:39)
[2021-04-04] MEDS ORDERED: YUPELRI175 MCG/3 INH (20:39)
[2021-04-04] MEDS ORDERED: BROVANA15 MCG/2 M INH (20:39)
[2021-04-04 20:40] LABS: ANISOCYTOSIS 1+; OVALOCYTES Occasional
[2021-04-04] MEDS ORDERED: CALCIUM CARBON500 MG PO (20:40)
[2021-04-04] MEDS ORDERED: ELIQUIS2.5 MG PO (20:40)
[2021-04-04 20:41] LABS: HYPOCHROMASIA Occasional; PLATELET ESTIMATE ADEQUATE
[2021-04-04] MEDS ORDERED: FUROSEMIDE 20 M20 MG PO (20:41)
[2021-04-04] MEDS ORDERED: TOPROL XL25 MG PO ×2 (20:41→20:42)
[2021-04-04] MEDS ORDERED: MONTELUKAST SODI4 M1 PO (20:43)
[2021-04-04] MEDS ORDERED: PAXIL 20 MG TAB20 M1 PO (20:43)
[2021-04-04] MEDS ORDERED: VITAMIN D325 MC3 PO (20:44)
[2021-04-05 02:21] VITALS: BP 121/68
[2021-04-05 06:21] VITALS: BP 130/51
[2021-04-05 08:04] LABS: URINE BILIRUBIN NEGATIVE (Negative); URINE BLOOD NEGATIVE (Negative); URINE CLARITY CLEAR; URINE COLOR YELLOW; URINE GLUCOSE-RANDOM NEGATIVE (Negative); URINE KETONES NEGATIVE (Negative); URINE LEUKOCYTES-REFLEX NEGATIVE (Negative); URINE NITRITE-REFLEX NEGATIVE (Negative); URINE PROTEIN NEGATIVE (Negative); URINE UROBILINOGEN 0.2 E.U./dl (0.2-1.0)
--- NOTE | 2021-04-05 09:16 | EKG ---
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1940 Requested By: Marilou Louise Order Number: [id number] MD: Mauricio Rushing Measurements Intervals [place] Rate: 67 P: AR: QRS: 87 QRSD: 147 T: -64 QT: 446 QTc: 471 Interpretive Statements Atrial flutter with predominant 4:1 AV block Right bundle branch block Repol abnrm suggests ischemia, diffuse leads Compared to ECG 01/15/2021 14:22:32 Early repolarization now present Possible ischemia now present Electronically Signed On 04-05-2021 9:16:38 BAR AND FILLER ASSEMBLER by Mauricio Rushing [email or web address] <ELECTRONICALLY SIGNED> By: Mauricio Rushing MD, FACC 04/05/21915 15 15 Mauricio Rushing MD, FAC /EPI
[2021-04-05 09:41] LABS: CALCIUM 8.4 mg/dL (8.5-10.1); CREATININE 1.1 mg/dL (0.6-1.3); POTASSIUM 3.1 mmol/L (3.5-5.1)
[2021-04-05 10:21] VITALS: BP 118/46
[2021-04-05 14:21] VITALS: BP 115/52
--- NOTE | 2021-04-05 14:41 | EKG ---
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1940 Requested By: Kristyn Hatfield Order Number: [id number] Reading MD: Demetrius Dunlap Measurements Intervals [place] Rate: 98 P: IN: QRS: 66 QRSD: 150 T: -88 QT: 437 QTc: 559 Interpretive Statements Atrial flutter Right bundle branch block Repol abnrm suggests ischemia, diffuse leads Compared to ECG 04/04/2021 19:16:30 Possible ischemia still present Electronically Signed On 04-05-2021 14:41:43 OFFICE AIDE by Demetrius Dunlap [email or web address] <ELECTRONICALLY SIGNED> By: Demetrius Dunlap MD, [facility] 04/05/21 1441 1343 1343 Demetrius Dunlap MD, [facility] /EPI
--- NOTE | 2021-04-05 16:28 | NUR ---
Attempted to assess pt - however pt not available and called son - Alireza but no answer and left a message. CM to continue to follow for discharge planning.
[2021-04-05 18:21] VITALS: BP 94/48
[2021-04-05 22:20] VITALS: BP 102/51
[2021-04-06] VITALS (8 sets, daily range): BP systolic 114–138; BP diastolic 41–73
[2021-04-06 07:48] LABS: HEMATOCRIT 36.1 % (37.0-47.0); HEMOGLOBIN 11.8 gm/dL (12.0-15.0); MCHC 32.8 g/dL (28.0-37.0); MCV 88.4 fL (80.0-100.0); MPV 8.8 fl. (7.2-11.1); RBC 4.09 mil/uL (4.20-5.00); RDW-CV 17.4 % (10.5-14.5); WBC 21.1 thou/uL (4.0-11.0)
[2021-04-06 08:07] LABS: ALBUMIN 2.6 g/dL (3.4-5.0); CALCIUM 9.1 mg/dL (8.5-10.1); CREATININE 0.9 mg/dL (0.6-1.3); TOTAL BILIRUBIN 0.4 mg/dL (<0.1-1.0); TOTAL PROTEIN 6.6 g/dL (6.4-8.2)
[2021-04-06 08:08] LABS: POTASSIUM 4.9 mmol/L (3.5-5.1)
--- NOTE | 2021-04-06 15:40 | NUR ---
Pt is admitted to the hospital on 04/04/21 with COPD Exacerbation. Called family to complete assessment (Leticia Betancourt (dtr in law) [phone]. Pt lives alone - however dtr in law reports both son and dtr and law are over at the house checking on pt every day. Pt has oxygen and nebulizer through [employer]. Pt was previously indepedent in ADL's and Mobility. Pt has a hx of [facility]. Pt has no hx of SNF - and dtr in law reports pt will refuse if recommended. Pt fills her prescriptions through mail order or [facility] on . Pt saw her PCP at the beginning of the year. Son Quinton Lay is DPOA. Referral was sent to [facility] and they have accepted. Anticipate possible discharge on 04/08/21. CM to continue to follow for discharge planning.
[2021-04-06] MEDS ORDERED: SIMVASTATIN80 MG PO (16:49)
[2021-04-06] MEDS ORDERED: LUMIGAN2.5 M1 OP (16:50)
[2021-04-06] MEDS ORDERED: PREDNISONE 10 M10 MG PO (16:52)
[2021-04-06] MEDS ORDERED: ASPIRIN325 PO (16:54)
[2021-04-06] MEDS ORDERED: NIACIN500 M2 PO (16:55)
[2021-04-07] VITALS: BP 101/53
[2021-04-07 04:00] VITALS: BP 141/57
--- NOTE | 2021-04-07 04:48 | NUR ---
PT ALERT ORIENTED. UP WITH STAND BY ASSIST TO BSC. INDUCTION HEAT TREATER TRACING SR.
[2021-04-07 05:46] LABS: ABSOLUTE LYMPHOCYTES 0.4 thou/uL (0.8-5.3); ABSOLUTE MONOCYTES 0.5 thou/uL (0.0-1.2); ABSOLUTE NEUTROPHILS 21.1 thou/uL (1.6-8.1); BASOPHILS 0.2 %; HEMOGLOBIN 11.7 gm/dL (12.0-15.0); LYMPHOCYTES 1.8 %; MCH 28.6 pg (26.0-34.0); MCHC 32.4 g/dL (28.0-37.0); MCV 88.5 fL (80.0-100.0); MONOCYTES 2.4 %; MPV 8.7 fl. (7.2-11.1); NUCLEATED RBCS 0 /100WBC; PLATELET COUNT* 257 thou/uL (150-400); POLYS 95.6 %; RBC 4.07 mil/uL (4.20-5.00); RDW-CV 17.4 % (10.5-14.5); WBC 22.1 thou/uL (4.0-11.0)
[2021-04-07 06:09] LABS: PREALBUMIN 32.6 mg/dL (18.0-35.7)
[2021-04-07 06:14] LABS: ALBUMIN 2.8 g/dL (3.4-5.0); CALCIUM 8.5 mg/dL (8.5-10.1); CREATININE 0.9 mg/dL (0.6-1.3); TOTAL BILIRUBIN 0.3 mg/dL (<0.1-1.0); TOTAL PROTEIN 6.4 g/dL (6.4-8.2)
[2021-04-07 06:17] LABS: POTASSIUM 3.9 mmol/L (3.5-5.1)
[2021-04-07 08:00] VITALS: BP 120/49
[2021-04-07 13:21] VITALS: BP 139/68
[2021-04-07 17:19] VITALS: BP 141/69
[2021-04-07 20:00] VITALS: BP 133/45
[2021-04-08] VITALS: BP 136/68
[2021-04-08 03:43] LABS: ABSOLUTE LYMPHOCYTES 0.8 thou/uL (0.8-5.3); ABSOLUTE MONOCYTES 0.9 thou/uL (0.0-1.2); ABSOLUTE NEUTROPHILS 17.9 thou/uL (1.6-8.1); BASOPHILS 0.1 %; HEMATOCRIT 36.4 % (37.0-47.0); HEMOGLOBIN 11.8 gm/dL (12.0-15.0); LYMPHOCYTES 4.2 %; MCH 28.8 pg (26.0-34.0); MCHC 32.3 g/dL (28.0-37.0); MONOCYTES 4.7 %; MPV 8.5 fl. (7.2-11.1); NUCLEATED RBCS 0 /100WBC; PLATELET COUNT* 241 thou/uL (150-400); RBC 4.09 mil/uL (4.20-5.00); RDW-CV 17.2 % (10.5-14.5); WBC 19.6 thou/uL (4.0-11.0)
[2021-04-08 04:02] LABS: ALBUMIN 2.7 g/dL (3.4-5.0); CALCIUM 8.2 mg/dL (8.5-10.1); CREATININE 0.7 mg/dL (0.6-1.3); POTASSIUM 3.5 mmol/L (3.5-5.1); TOTAL BILIRUBIN 0.4 mg/dL (<0.1-1.0); TOTAL PROTEIN 6.3 g/dL (6.4-8.2)
[2021-04-08 04:20] VITALS: BP 127/53
[2021-04-08 08:00] VITALS: BP 158/56
[2021-04-08 11:31] VITALS: BP 129/65
[2021-04-08 16:00] VITALS: BP 125/66
--- NOTE | 2021-04-08 19:24 | NUR ---
PT SAT UP IN CHAIR FOR LUNCH AND DINNER-TOLERATED WELL. DENIES ANY PAIN OR SHORTNESS OF BREATH. AM ASSESSMENT CHARTED. MEDICATIONS PER MAR. HOURLY ROUNDING OBSERVED. CALL LIGHT WITHIN REACH. WILL CONTINUE PLAN OF CARE.
[2021-04-08 20:06] VITALS: BP 131/52
[2021-04-09] VITALS: BP 126/54
[2021-04-09 04:00] VITALS: BP 125/59
--- NOTE | 2021-04-09 04:03 | NUR ---
PT A&OX4, VSS ON 4L HF NC, IV SALINE LOCKED, UP WITH ASSIST. PT HAD ONE RUN OF 14 BEATS VTACH AT 2330. NO CO OF PAIN OR DISCOMFORT. PT SLEEPING WELL, WILL CONTINUE TO MONITOR.
[2021-04-09 04:13] LABS: HEMATOCRIT 39.3 % (37.0-47.0); HEMOGLOBIN 12.5 gm/dL (12.0-15.0); MCH 28.5 pg (26.0-34.0); MCV 89.2 fL (80.0-100.0); MPV 8.6 fl. (7.2-11.1); NUCLEATED RBCS 0 /100WBC; PLATELET COUNT* 238 thou/uL (150-400); RDW-CV 17.5 % (10.5-14.5); WBC 14.5 thou/uL (4.0-11.0)
[2021-04-09 04:41] LABS: ALBUMIN 2.8 g/dL (3.4-5.0); CALCIUM 8.2 mg/dL (8.5-10.1); POTASSIUM 3.5 mmol/L (3.5-5.1); TOTAL BILIRUBIN 0.4 mg/dL (<0.1-1.0); TOTAL PROTEIN 6.4 g/dL (6.4-8.2)
[2021-04-09] MEDS ORDERED: PROTONIX40 M2 PO (06:27)
[2021-04-09] MEDS ORDERED: DOXYCYCLINE 10100 MG PO (06:27)
[2021-04-09] MEDS ORDERED: PREDNISONE 10 M10 MG PO (06:27)
[2021-04-09] MEDS ORDERED: CEFDINIR300 MG PO (06:27)
[2021-04-09] MEDS ORDERED: TOPROL XL100 MG PO (06:31)
[2021-04-09] MEDS ORDERED: BUMETANIDE 1 MG1 M1 PO (06:34)
[2021-04-09 07:43] LABS: ABSOLUTE LYMPHOCYTES 1.2 thou/uL (0.8-5.3); ABSOLUTE MONOCYTES 0.3 thou/uL (0.0-1.2); ABSOLUTE NEUTROPHILS 13.1 thou/uL (1.6-8.1)
[2021-04-09 07:44] LABS: PLATELET ESTIMATE ADEQUATE
[2021-04-09 08:00] VITALS: BP 124/62
[2021-04-09 08:43] VITALS: BP 124/62
--- NOTE | 2021-04-09 13:06 | NUR ---
[facility] W/PT AND HER DIL, COLE, TO INFORMED THEM OF [facility] ACCEPTANCE OF PT AND OXIMETRY RESULTS 4L AT REST AND 6L WITH ACTIVITY, PER [facility], PT IS CURRENTLY ON 4L AT HOME AND 7L AT BEDTIME. [facility] FAXED ORDERS TO [facility] [phone].
--- NOTE | 2021-04-09 17:03 | NUR ---
PT A&OX4. PT IV REMOVED SUCCESSFULLY WELL TELE MONITOR. DISCHARGE PAPER WORK REVIEWED WITH PATIENT AND PATIENT DAUGHTER, BOTH VERBALIZED UNDERSTANDING OF ALL INSTRUCTIONS AND MEDICATIONS. PT HAS POSSESSION OF ALL BELONGINGS SHE WAS ADMITTED WITH. PT WHEELED OFF UNIT VIA NURSING STAFF TO DAUGHTER'S PERSONAL VEHICLE AT 1445.
== END 2021-04-09 15:00 | disposition home or self-care (01) | DRG 177 ==
LOC: M.ERS 19:04 → M.TBA-ER 22:21 → M.2W 04-06 14:55
PROVIDERS: Internal Medicine; Personal Emergency Response Attendant; ADMIT Internal Medicine; ATTEND Internal Medicine
DX: J15.6 Pneumonia due to other Gram-negative bacteria (principal); J96.22 Acute and chronic respiratory failure with hypercapnia; J96.21 Acute and chronic respiratory failure with hypoxia; I50.33 Acute on chronic diastolic (congestive) heart failure; J44.1 Chronic obstructive pulmonary disease with (acute) exacerbation; E87.1 Hypo-osmolality and hyponatremia; I47.2 Ventricular tachycardia; J44.0 Chronic obstructive pulmonary disease with (acute) lower respiratory infection; Z20.822 Contact with and (suspected) exposure to COVID-19; F17.210 Nicotine dependence, cigarettes, uncomplicated; I48.0 Paroxysmal atrial fibrillation; Z79.01 Long term (current) use of anticoagulants; E78.5 Hyperlipidemia, unspecified; Z86.711 Personal history of pulmonary embolism; I11.0 Hypertensive heart disease with heart failure; E83.42 Hypomagnesemia; Z86.718 Personal history of other venous thrombosis and embolism; Z71.6 Tobacco abuse counseling; E11.51 Type 2 diabetes mellitus with diabetic peripheral angiopathy without gangrene; Z90.49 Acquired absence of other specified parts of digestive tract

== ENCOUNTER → 2021-04-17 | Outpatient (CLI) | payer MEDICARE ==
[~2021-04-17] MED LIST changes: +ALENDRONATE SOD35 MG PO; +ALLOPURINOL 10100 M3 PO; +BROVANA15 MCG/2 M INH; +BUDESONIDE0.5 MG/2 M INH; +BUMETANIDE 1 MG1 M1 PO; +CALCIUM CARBON500 MG PO; +CEFDINIR300 MG PO; +DOXYCYCLINE 10100 MG PO; +ELIQUIS2.5 MG PO; +FUROSEMIDE 20 M20 MG PO; +KLOR-CON M2020 MEQ PO; +LUMIGAN2.5 M1 OP; +MONTELUKAST SODI4 M1 PO; +NIACIN500 M2 PO; +PAROXETINE HCL20 MG PO; +PAXIL 20 MG TAB20 M1 PO; +PROTONIX40 M2 PO; +SIMVASTATIN80 MG PO; +TOPROL XL100 MG PO; +TOPROL XL25 MG PO; +VITAMIN D325 MC3 PO; +YUPELRI175 MCG/3 INH
[2021-04-17 13:13] LABS: CALCIUM 8.5 mg/dL (8.5-10.1); CREATININE 1.2 mg/dL (0.6-1.3); POTASSIUM 4.6 mmol/L (3.5-5.1)
== END ==
LOC: M.LAB 12:38
PROVIDERS: ATTEND Family Medicine
DX: I50.32 Chronic diastolic (congestive) heart failure (principal)